=== PATIENT | male | born 1960 | race Caucasian/White ===

== ENCOUNTER 2020-05-21 08:21 | Day surgery (SDC) | payer OTHER ==
[2020-05-21 08:46] LABS: MPV 6.9 fL (7.6-11.3)
--- OUTSIDE RECORDS SUMMARY | 2020-05-21 08:47 | XMS REPORT | Continuity of Care Document ---
:1960 Author Organization [facility] t Address [address] [place] [address] Care Team Providers Name Role Phone SYSTEM, PROVIDER NOT IN Attending Clinician Unavailable Payers Payer Name Policy Type Policy Number Effective Date Expiration Date [facility] [id number] 2020 MD Barorso pablo [facility] 00:[facility]00 COMMUNITY MEDICAID STAR PLUS [id number]/[id number] 020-PresentMedica id Problems This patient has no known problems. Allergies, Adverse Reactions, Alerts This patient has no known allergies or adverse reactions. Social History Social Habit Start Date Stop Date Quantity Comments Source Sex Assigned At MD Villalobos Medications This patient has no known medications. Procedures This patient has no known procedures. Encounters Start End Encounter Admission Attending Care Care Encounter Source Date/Time Date/Time Type Type Clinicians Facility Department ID 2020-05-05 Outpatient SYSTEM, [facility] [id number] 16:22:21 PROVIDER Luis o n Results This patient has no known results.
[2020-05-21] MEDS ORDERED: Ringers Lactate 1,000 ML IV ONE (08:49)
[2020-05-21 08:51] LABS: Platelet Estimate ND
[2020-05-21 08:54] LABS: Protime INR 1.22
--- NOTE | 2020-05-21 10:03 | ECHO ---
HEIGHT: 6 ft 0 in WEIGHT: 168 lb 0 oz DATE OF STUDY: 05/20/[address]: Robi King 2-DIMENSIONAL: YES M.MODE: YES DOPPLER: YES COLOR FLOW: YES TDS: NO PORTABLE: NO DEFINITY: NO BUBBLE STUDY: NO DIAGNOSIS: LUNG CANCER CARDIAC HISTORY: CATHERIZATION: NO SURGERY: NO PROSTHETIC VALVE: NO PACEMAKER: NO MEASUREMENTS (cm) DIASTOLIC (NORMALS) SYSTOLIC (NORMALS) IVSd 0.9 (0.6-1.2) LA Diam 3.8 (1.9-4.0) LVEF 68% LVIDd 4.7 (3.5-5.7) LVIDs 2.9 (2.0-3.5) %FS 38% LVPWd 1.1 (0.6-1.2) Ao Diam 3.1 (2.0-3.7) 2 DIMENSIONAL ASSESSMENT: RIGHT ATRIUM: NORMAL LEFT ATRIUM: NORMAL RIGHT VENTRICLE: NORMAL LEFT VENTRICLE: NORMAL TRICUSPID VALVE: NORMAL MITRAL VALVE: PULMONIC VALVE: AORTIC VALVE: NORMAL PERICARDIAL EFFUSION: NONE AORTIC ROOT: NORMAL LEFT VENTRICULAR WALL MOTION: NORMAL DOPPLER/COLOR FLOW: NORMAL COMMENTS: NORMAL LEFT VENTRICULAR EJECTION FRACTION 55-60% WITH NORMAL WALL MOTION. MILD PULMONARY INSUFFICIENCY. NORMAL DIASTOLIC FUNCTION. TECHNOLOGIST: Mague OROSCO
[2020-05-21] MEDS ORDERED: MIDAZOLAM HCL 2 MG/2 ML INJ ONE (10:11)
[2020-05-21] MEDS ORDERED: FENTANYL CITR 100 MCG/2 ML ONE (10:11)
[2020-05-21 10:44] VITALS: O2SAT 100
[2020-05-21 10:45] VITALS: BMI 22.8
--- NOTE | 2020-05-21 11:56 | RAD REPORT ---
EXAM DESCRIPTION: RAD - Chest Single View - 05/21/2020 11:35 am CLINICAL HISTORY: Lung mass, post biopsy chest film COMPARISON: CT biopsy imaging May 21, two view chest April 09 TECHNIQUE: AP portable chest image was obtained 05/21/2020 11:35 perez expiration . FINDINGS: Patient is status post biopsy of the left lung mass. CT imaging showed a small anterior le ft base pneumothorax on the post biopsy acquisition. A small left apical pneumothorax is identifiable . When adjusting for the 2 different modalities, the size of the pneumothorax does not appear to have increased in the short interval between CT biopsy and the post biopsy chest film. IMPRESSION: Small left apical pneumothorax as detailed.
--- NOTE | 2020-05-21 14:14 | RAD REPORT ---
EXAM DESCRIPTION: RAD - Chest Single View - 05/21/2020 2:05 pm CLINICAL HISTORY: r/o pneumo post lung bx COMPARISON: Post biopsy chest film May 21 TECHNIQUE: AP portable chest image was obtained 05/21/2020 2:05 pmin expiration . FINDINGS: In the 3 hour interval since the immediate post biopsy film. No new or enlarging pulmonary hemorrhage. No change to the left midlung field mass. Heart and vasculature are normal. IMPRESSION: Stable minimal left apical pneumothorax.
[2020-05-21 14:38] VITALS: BP 118/70; TEMP 98.5
--- NOTE | 2020-05-21 20:39 | RAD REPORT ---
EXAM DESCRIPTION: CT - Lung Biopsy Perc w/CT - 05/21/2020 11:15 am CLINICAL HISTORY: LT LUNG MASS COMPARISON: No comparisons TECHNIQUE: The patient presented for image guided biopsy of the previously detailed large 7 cm left upper lobe mass. The prior day PET-CT was reviewed. The anterior and central aspect of the mass showe d no abnormal FDG uptake. This would indicate necrotic tissue that would not likely yield the desired diagnostic information. Therefore the anterior approach to the mass was not utilized. A lateral appr oach to the mass was determined to be the best approach for this patient. The procedure, risks and alternatives to the procedure were discussed with the patient in detail. Aft er answering all questions, both oral and written consent were obtained. Patient had no contraindicat ed allergy or medication history. PT/ PTT/ platelet values all within normal range for the procedure. IV access and physiologic monitors were in place. After the consent, the patient was medicated with 1 milligram Versed at IV and 100 micrograms fentanyl IV. The patient remained fully awake and alert. T he patient was administered an additional 1 milligram Versed at IV and 50 micrograms fentanyl IV. Preliminary CT imaging was performed with lateral access site selected. Skin and deeper tissues were anesthetized with 1% lidocaine. From a lateral approach using CT guidance a 17 gauge introducer needl e was advanced. Introducer needle was placed in the lateral posterior aspect of the mass. This was th e area of most metabolic activity on the PET-CT study. Two core specimens were obtained approximately 2 cm in length. The needle was withdrawn and direct pressure applied to the skin puncture site. A st erile bandage was placed. Post biopsy imaging showed no measurable hemorrhage in the lung parenchyma. The patient had an approx imately 5% pneumothorax at the anterior base. The patient tolerated procedure well without additional complication. Vital signs were stable through out the procedure. The patient indicated no pain at the conclusion of the procedure. Conscious sedati on time was 40 minutes. The patient was transferred to the imaging suite for immediate post biopsy chest film. The patient wa s then transferred to the same day surgical area for post biopsy monitoring. IMPRESSION: 1. CT-guided biopsy was performed of the large left lung mass. There were two core speci mens obtained and given to pathology. 2. A small anterior left base pneumothorax was present approximately 5%. The patient was transferred to the same day surgical area for post biopsy monitoring.
== END 2020-05-21 14:20 | disposition home or self-care (01) ==
LOC: DS 08:21
PROVIDERS: ATTEND Radiology Diagnostic Radiology
DX: C34.12 Malignant neoplasm of upper lobe, left bronchus or lung (principal); J93.83 Other pneumothorax
CPT/HCPCS: 93306; 36415; 85049; 85610; 88305; 85730; 77012; 32405; 71045 ×2; J2250; J3010; J7120

== ENCOUNTER 2020-06-23 07:47 | Emergency (ER) | payer OTHER ==
--- OUTSIDE RECORDS SUMMARY | 2020-06-23 07:56 | XMS REPORT | Continuity of Care Document ---
:1960 Author Organization [facility] t Address [address] [place] [address] Care Team Providers Name Role Phone SYSTEM, PROVIDER NOT IN Attending Clinician Unavailable Payers Payer Name Policy Type Policy Number Effective Date Expiration Date [facility] [id number] 2020 MD Dharmesh gold [facility] 00:00:00 COMMUNITY MEDICAID STAR PLUS [id number]/11/06 020-PresentMedica id Problems This patient has no known problems. Allergies, Adverse Reactions, Alerts Allergy Allergy Status Severity Reaction(s) Onset Inactive Treating Comm ents Source Name Type Date Date Clinician No Known DA Active [facility] Allergie 8-12 [facility] s 00:00: d 00 [facility] Social History Social Habit Start Date Stop Date Quantity Comments Source Sex Assigned At MD Villalobos Medications This patient has no known medications. Procedures This patient has no known procedures. Encounters Start End Encounter Admission Attending Care Care Encounter Source Date/Time Date/Time Type Type Clinicians Facility Department ID 2020-05-05 Outpatient SYSTEM, [facility] MARK [id number] 16:22:21 PROVIDER Luis o n Results Test Description Test Time Test Comments Results Result Sourc e Comments - XR FLUOROSCOPY 2020-06-18 Name: MAURO OLMEDO 0-60 MIN 09:29:00 [facility] Claude : 1960 Age/S: 60 / M [id number] Unit #: [id number] Loc: [place] [address] Phys: Sarah Sanford MD Acct: [id number] Dis Date: Status[place] [facility] [place]: [phone] Exam Date: 06/18/2020 0845 FAX #: Reason: PORT-A-CATH INSERTION EXAMS: CPT: [id number] XR FLUOROSCOPY 0-60 MIN 81362 Fluoro Time: 9 SEC DAP (Gy m2): Air Kerma (mGy): EXAM: - XR FLUOROSCOPY 0-60 MIN HISTORY: PORT-A-CATH INSERTION S 17 COMPARISON: None available time of interpretation. FINDINGS: Intraoperative fluoroscopy was provided for venous port placement. Radiologist was not present for the procedure. 4 fluoroscopy images were obtained. Please see surgical report. IMPRESSION: 1. As above. Fluoroscopy time: 9.4 seconds Cumulative dose: 0.9 mGy at 0929 Reported and signed by: Macarena Chapin M.D. CC: Roxie Soriano; Sarah Sanford MD PAGE 1 Signed Report Name: MAURO OLMEDO [facility] : 1960 Age/S: 60 / M [id number] Unit #: [id number] Loc: [place] [address] Phys: Sarah Sanford MD Acct: [id number] Dis Date: Status: [facility] [place] #: [phone] Exam Date: 06/18/2020 0845 FAX #: Reason: PORT-A-CATH INSERTION EXAMS: CPT: [id number] XR FLUOROSCOPY 0-60 MIN 76843 Fluoro Time: 9 SEC DAP (Gy m2): Air Kerma (mGy): <Continued> Technologist: Marlen Dumont RT(R) Trnscb Date/Time: 06/18/2020 (928) [id number] Orig Print D/T: S: 06/18/2020 (32) PAGE 2 Signed Report - XR CHEST 1 V 2020-06-18 Name: MAURO OLMEDO 09:25:00 [facility] : 1960 Age/S: 60 / M [id number] Unit #: [id number] Loc: [place] [address] Phys: Sarah Sanford MD Acct: [id number] Dis Date: Status: [place] [facility] [place] #: [phone] Exam Date: 06/18/2020909 FAX #: Reason: s/p port a cath insertion EXAMS: CPT: [id number] XR CHEST 1 V 00752 Fluoro Time: DAP (Gy m2): Air Kerma (mGy): REASON FOR EXAM: Port-A-Cath insertion. Chest, single view frontal projection. COMPARISON: None The right-sided Port-A-Cath has is tip in the superior vena cava at the level just beneath the right mainstem bronchus. Central left lung mass seen. Right lung clear. Heart size normal. No effusion or pneumothorax seen. Bony structures intact. Noted is scoliosis in the spine. IMPRESSION: Good position for the Port-A-Cath. No evidence of pneumothorax. Left lung mass. Location: U 19 at 0925 Reported and signed by: Brendon Park M.D CC: Roxie Soriano; Sarah Sanford MD PAGE 1 Signed Report Name: MAURO OLMEDO [place] : 1960 Age/S: 60 / M [id number] Unit #: [id number] Loc: [place] [address] Phys: Sarah Sanford MD Acct: [id number] Dis Date: Status: [place] [facility] [place] #: [phone] Exam Date: 06/18/2020909 FAX #: Reason: s/p port a cath insertion EXAMS: CPT: [id number] XR CHEST 1 V 16909 Fluoro Time: DAP (Gy m2): Air Kerma (mGy): <Continued> Technologist: Keesha Prasad, RT(R)(CT); Marlen Dumont RT(R) Trnscb Date/Time: 06/18/2020 (924) [email or web address] Orig Print D/T: S: 06/18/2020 (927) PAGE 2 Signed Report COVID 19 INHOUSE AG 2020-06-16 09:57:00 Test Item Value Reference Range Interpretation Comme nts COVID 19 INHOUSE AG (test code = NEGATIVE Negative Per demurrage agent, negative [id number]) results should be treated aspresumptive a nd, if inconsistent wi th clinical signs andsymptoms or necessary for patient managem ent, should betested with a n alternative molecular assay . Negative resultsdo not p reclude SARS-CoV-2 infection and s hould not be usedas the sole basis for patient management deci sions. Negative results should be considered in the context of apatient's recent exposures, hist ory, presence of clinicalsigns a nd symptoms consistent with COVID-19. Emergent procedure? YES
[2020-06-23] MEDS ORDERED: NA CHLORIDE 0.9% 3,000 ML ONE (08:12)
[2020-06-23 08:31] LABS: Absolute Lymphocytes (CBC) 1.4 K/uL (0.7-4.9); Basophils % 0.4 % (0-1.3); Hematocrit 40.3 % (39.6-49.0); Lymphocytes % 19.1 % (15.3-44.8); MPV 7.1 fL (7.6-11.3); RBC Red Blood Cell Count 5.16 M/uL (4.33-5.43)
[2020-06-23] MEDS ORDERED: ACETAMINOPHEN 500 MG TAB ONE (08:31)
[2020-06-23] MEDS ORDERED: CEFTRIAXONE/SWI 1gm 1 GM/10 ML SYR ONE (08:32)
[2020-06-23 08:40] LABS: Protime INR 1.13
[2020-06-23 08:46] LABS: ALT/SGPT 27 U/L (12-78); AST/SGOT 38 U/L (15-37); Alkaline Phosphatase 118 U/L (45-117); Amylase 80 U/L (25-115); BUN Blood Urea Nitrogen 14 mg/dL (7-18); Bicarbonate 24 mmol/L (21-32); Bilirubin Direct 0.4 mg/dL (0-0.2); Bilirubin Total 0.9 mg/dL (0.2-1.0); CKMB Creatine Kinase MB < 1.0 ng/mL (0.3-3.6); Creatine Phosphokinase 62 U/L (39-308); Glucose Level 105 mg/dL (74-106); Lipase 244 U/L (73-393); Protein, Total 6.9 g/dL (6.4-8.2); Sodium Level 135 mmol/L (136-145); Troponin (Emerg Dept Use Only) 0.03 ng/mL (0.0-0.045)
--- NOTE | 2020-06-23 08:56 | RAD REPORT ---
EXAM DESCRIPTION: CT - Head Brain Wo Cont - 06/23/2020 8:43 am CLINICAL HISTORY: AMS;Fever COMPARISON: Brain W/Wo Cont dated 05/18/2020 TECHNIQUE: Axial 5 mm thick images of the head were obtained without IV contrast. All CT scans are performed using dose optimization technique as appropriate and may include automated exposure control or mA/KV adjustment according to patient size. FINDINGS: No intracranial hemorrhage is present. Prior imaging showed multiple intracranial metastat ic lesions. In the left frontal lobe there is white matter diminished attenuation matching the May RI study. No increase in mass effect or edema in this region. At the left lateral parieto-occipital j unction there is focal diminished attenuation generally matching the MRI study. There is no significa nt mass effect in this region. No acute cortical based infarction identified. No new cortical edema o r sulcal effacement. Additional small punctate metastatic lesions could still be possible. If present there is no new or enlarging mass effect. No edema or shift of midline structures present. No abnorm al extra-axial fluid collections. Ventricles are normal. Mastoid air cells and visualized portions of the paranasal sinuses are clear. No acute bony findings. IMPRESSION: No intracranial hemorrhage is present. Patient has known intracranial metastatic disease. The cortical and white matter edema related to the metastatic lesions is not clearly different or measurably progressive from the May 18 MRI study. No midline shift. Ventricles are normal.
--- NOTE | 2020-06-23 09:28 | RAD REPORT ---
EXAM DESCRIPTION: RAD - Chest Single View - 06/23/2020 9:09 am CLINICAL HISTORY: CHEST PAIN, known left lung malignancy COMPARISON: Portable chest May 21 TECHNIQUE: AP portable chest image was obtained 06/23/2020 9:09 am . FINDINGS: Large left midlung field mass is identified. Size is not clearly different from the May 05 imaging. Right-sided Port-A-Cath has been placed since the prior study. Interstitial pattern overal l is not substantially different. No new mass or consolidation. No failure or volume overload. Heart and vasculature are normal. No measurable pleural effusion and no pneumothorax. No acute bony abnormality seen. No acute aortic findings suspected. IMPRESSION: No acute cardiopulmonary process. Patient has known left midlung field malignancy is not clearly different.
[2020-06-23 10:30] LABS: Anisocytosis 2+; Blood Morphology Comment NOTED (NOT SEEN); Platelet Estimate ADEQ
[2020-06-23 11:10] LABS: Urine Bacteria <20 /HPF (NONE SEEN); Urine Culture Reflex Order NOT NEEDED; Urine Sperm PRESENT (NONE SEEN)
--- NOTE | 2020-06-23 12:19 | ER ---
Nurse's Notes [facility] Name: Tylor Delgadillo Age: 60 yrs Sex: Male : 1960 Arrival Date: 06/23/2020 Time: 07:50 Bed 7 Private MD: Diagnosis: Confusion, chest pain, expressive aphasia - resolved Presentation: 06/23 08:04 Chief complaint: Patient states: midsternal chest pains off and on , wakes him up in iw middle of night every 40 minutes, also running fever, urinary frequency and pain, started Sunday, is currently on chemo for brain cancer also is having some confusion and can't sleep at night. Coronavirus screen: fever, Client presents with at least one sign or symptom that may indicate coronavirus-19. Ebola Screen: Patient negative for fever greater than or equal to 101.5 degrees Fahrenheit, and additional compatible Ebola Virus Disease symptoms Patient denies exposure to infectious person. Patient denies travel to an Ebola-affected area in the 21 days before illness onset. No symptoms or risks identified at this time. Initial Sepsis Screen: Does the patient meet any 2 criteria? Temp <36.0*C (96.8*F)) or > 38.3*C (100.9*F). HR > 90 bpm. Does the patient have a suspected source of infection? Yes: Dysuria/Frequency/Urgency/UTI. Risk Assessment: Do you want to hurt yourself or someone else? Patient reports no desire to harm self or others. Onset of symptoms was June 21, 2020. 08:04 Method Of Arrival: Wheelchair iw 08:04 Acuity: RODRIGO 2 iw Historical: - Allergies: 08:07 No Known Allergies; iw - PMHx: 08:14 Cancer; iw - Immunization history:: Adult Immunizations up to date, Adult Immunizations not up to date. - Social history:: Smoking status: Patient reports the use of cigarette tobacco products, smokes one pack cigarettes per day. Screenin:09 Abuse screen: Denies threats or abuse. Denies injuries from another. Nutritional sv screening: No deficits noted. Tuberculosis screening: No symptoms or risk factors identified. Fall Risk None identified. Assessment: 08:05 General: Appears in no apparent distress. uncomfortable, slender, Behavior is calm, sv cooperative, appropriate for age, Reports fever. Pain: Complains of pain in chest Pain does not radiate. Pain currently is 5 out of 10 on a pain scale. Pain began gradually. Neuro: Level of Consciousness is awake, alert, obeys commands, Oriented to person, place, time, situation, Moves all extremities. Full function Gait is steady, Speech is normal, has some difficulty speaking. Reports headache. Cardiovascular: Patient's skin is warm and dry. Rhythm is sinus rhythm. Respiratory: Respiratory effort is even, unlabored, Respiratory pattern is regular, symmetrical. Derm: Skin is normal. Musculoskeletal: Range of motion: intact in all extremities. 08:05 : Reports burning with urination. sv 09:00 Reassessment: Patient appears in no apparent distress at this time. Patient and/or hb family updated on plan of care and expected duration. Pain level reassessed. Patient is alert, oriented x 3, equal unlabored respirations, skin warm/dry/pink. 10:30 Reassessment: Patient appears in no apparent distress at this time. Patient and/or sv family updated on plan of care and expected duration. Pain level reassessed. Patient is alert, oriented x 3, equal unlabored respirations, skin warm/dry/pink. 12:20 Reassessment: Patient appears in no apparent distress at this time. Patient and/or sv family updated on plan of care and expected duration. Pain level reassessed. Patient is alert, oriented x 3, equal unlabored respirations, skin warm/dry/pink. Pt refusing the MRI. Vital Signs: 08:00 BP 108 / 72; Pulse 115; Resp 18 S; Temp 101.3(O); Pulse Ox 98% on R/A; Weight 81.65 kg; iw 08:33 BP 120 / 72; Pulse 97; Resp 21; Pulse Ox 95% on R/A; sv 09:14 BP 100 / 64; Pulse 92; Resp 17; Temp 99.3(O); Pulse Ox 95% ; sv 09:45 BP 93 / 66; Pulse 86; Resp 20; Pulse Ox 95% on R/A; sv 10:32 BP 94 / 62; Pulse 83; Resp 18; Pulse Ox 96% on R/A; sv 11:35 BP 94 / 65; Pulse 80; Resp 14; Pulse Ox 97% ; sv ED Course: 07:50 Patient arrived in ED. ds1 07:58 Rittger, Ozzie, MD is Attending Physician. kdr 07:59 Heather Benites, GEO is Primary Nurse. sv 08:07 Triage completed. iw 08:07 Initial lab(s) drawn, by me, sent to lab. First set of blood cultures drawn by me. dh3 Inserted saline lock: 20 gauge in right forearm, using aseptic technique. Blood collected. 08:09 ED physician to see patient. sv 08:09 EKG done, by ED staff, reviewed by Ozzie Rodriguez MD. Patient maintains SpO2 saturation sv greater than 95% on room air. 08:09 Second set of blood cultures drawn by me. dh3 08:09 Patient has correct armband on for positive identification. Placed in gown. Bed in low sv position. Call light in reach. Side rails up X2. spike machine feeder on. Pulse ox on. NIBP on. Door closed. Head of bed elevated. 08:10 Arm band placed on. sv 08:[address] Scan. sv 08:42 CT Head Brain wo Cont In Process Unspecified. EDMS 09:10 Chest Single View XRAY In Process Unspecified. EDMS 12:14 Patient moved to MRI via wheelchair. sv 12:52 No provider procedures requiring assistance completed. IV discontinued, intact, IV sv found on the stretcher intact. Administered Medications: 08:06 Drug: NS 0.9% (30 ml/kg) 30 ml/kg Route: IV; Rate: bolus; Site: right forearm; hb 09:30 Follow up: Response: No adverse reaction; IV Status: Completed infusion; IV Intake: sv 2400ml 08:25 Drug: Tylenol 1000 mg Route: PO; hb 09:16 Follow up: Response: No adverse reaction sv 08:25 Drug: Rocephin - (cefTRIAXone) 1 grams Route: IVPB; Infused Over: 30 mins; Site: right hb antecubital; 08:27 Follow up: Response: No adverse reaction; IV Status: Completed infusion; IV Intake: 10mlsv Intake: 08:27 IV: 10ml; Total: 10ml. sv 09:30 IV: 2400ml; Total: 2410ml. sv Outcome: 12:19 Discharge ordered by . kdr 12:52 Patient left the ED. sv 12:52 Discharged to home ambulatory, pt left before signing the discharge paperwork. sv 12:52 Condition: stable Signatures: Dispatcher [employer] Heather Rosario RN RN Ozzie Rodriguez MD MD [facility] Kathi Hernandez ds1 Priya Sultana RN RN Mariela Parish RN RN Kelin Echavarria 3 Corrections: (The following items were deleted from the chart) 08:08 08:00 81.65 kg; hb iw 08:11 08:04 Chief complaint: Patient states: midsternal chest pains off and on , wakes him up iw in middle of night every 40 minutes, also running fever, urinary frequency and pain, started Sunday, is currently on chem for "blood cancer" also is having some confusion and can't sleep at night iw 08:36 08:05 General: Appears in no apparent distress. uncomfortable, slender, Behavior is sv calm, cooperative, appropriate for age, sv 09:16 09:14 BP 100 / 64; Pulse 92bpm; Resp 17bpm; Pulse Ox 95%; sv sv 10:35 10:32 Pulse 83bpm; Resp 18bpm; Pulse Ox 96% RA; sv sv 16:33 12:52 Reassessment: Patient appears in no apparent distress at this time. Patient sv and/or family updated on plan of care and expected duration. Pain level reassessed. Patient is alert, oriented x 3, equal unlabored respirations, skin warm/dry/pink. Pt refusing the MRI sv
--- NOTE | 2020-06-23 12:19 | EDPHYS ---
Physician Documentation [facility] Name: Tylor Delgadillo Age: 60 yrs Sex: Male : 1960 Arrival Date: 06/23/2020 Time: 07:50 Bed 7 Private MD: ED Physician Ozzei Rodriguez HPI: 06/23 08:38 This 60 yrs old Male presents to ER via Wheelchair with complaints of Chest kdr Pain, Speech Difficulty. 08:38 The patient or guardian reports chest pain that is located primarily in the substernal kdr area, anterior chest wall, bilaterally. Onset: gradually, Sunday the patient started feeling poorly. 16:53 The patient presents with confusion, decreased mental status, expressive aphasia. kdr Onset: The symptoms/episode began/occurred this morning. Possible causes: CVA or TIA, low blood sugar, seizure, sepsis. Associated signs and symptoms: Pertinent positives: chest pain, Poor sleep. Current symptoms: In the emergency department the patient's symptoms are unchanged from the initial presentation. Patient's baseline: Neuro: alert and fully oriented, Motor: no deficits, Ambulation: walks without assistance, Speech: normal, normal for age, The patient has a previous history of Lung CA with mets to the brain - is on chemo. The patient has not experienced similar symptoms in the past. The patient has not recently seen a physician. Historical: - Allergies: 08:07 No Known Allergies; iw - PMHx: 08:14 Cancer; iw - Immunization history:: Adult Immunizations up to date, Adult Immunizations not up to date. - Social history:: Smoking status: Patient reports the use of cigarette tobacco products, smokes one pack cigarettes per day. ROS: 16:53 Constitutional: Negative for fever, chills, and weight loss, Eyes: Negative for injury, kdr pain, redness, and discharge, Neck: Negative for injury, pain, and swelling, Respiratory: Negative for shortness of breath, cough, wheezing, and pleuritic chest pain, Abdomen/GI: Negative for abdominal pain, nausea, vomiting, diarrhea, and constipation, Back: Negative for injury and pain, : Negative for injury, bleeding, discharge, and swelling, MS/Extremity: Negative for injury and deformity, Skin: Negative for injury, rash, and discoloration, Psych: Negative for depression, anxiety, suicide ideation, homicidal ideation, and hallucinations, Allergy/Immunology: Negative for hives, rash, and allergies, Endocrine: Negative for neck swelling, polydipsia, polyuria, polyphagia, and marked weight changes, Hematologic/Lymphatic: Negative for swollen nodes, abnormal bleeding, and unusual bruising. 16:53 Cardiovascular: Positive for chest pain, has been ongoing for weeks and may have started when he began chemo. 16:53 Neuro: Positive for altered mental status, speech changes. Exam: 16:53 Constitutional: This is a well developed, well nourished patient who is awake, alert, kdr and in no acute distress. Head/Face: Normocephalic, atraumatic. Eyes: Pupils equal round and reactive to light, extra-ocular motions intact. Lids and lashes normal. Conjunctiva and sclera are non-icteric and not injected. Cornea within normal limits. Periorbital areas with no swelling, redness, or edema. Neck: Trachea midline, no thyromegaly or masses palpated, and no cervical lymphadenopathy. Supple, full range of motion without nuchal rigidity, or vertebral point tenderness. No Meningismus. Chest/axilla: Normal chest wall appearance and motion. Nontender with no deformity. No lesions are appreciated. Cardiovascular: Regular rate and rhythm with a normal S1 and S2. No gallops, murmurs, or rubs. Normal PMI, no JVD. No pulse deficits. Respiratory: Lungs have equal breath sounds bilaterally, clear to auscultation and percussion. No rales, rhonchi or wheezes noted. No increased work of breathing, no retractions or nasal flaring. Abdomen/GI: Soft, non-tender, with normal bowel sounds. No distension or tympany. No guarding or rebound. No evidence of tenderness throughout. Back: No spinal tenderness. No costovertebral tenderness. Full range of motion. Skin: Warm, dry with normal turgor. Normal color with no rashes, no lesions, and no evidence of cellulitis. MS/ Extremity: Pulses equal, no cyanosis. Neurovascular intact. Full, normal range of motion. Psych: Awake, alert, with orientation to person, place and time. Behavior, mood, and affect are within normal limits. 16:53 Neuro: Orientation: Not oriented to person, place, time, Mentation: inappropriate for stated age, slow to respond, confused, Memory: unable to test, Cranial nerves: no acute changes, Cerebellar function: no acute changes, Motor: moves all fours. 19:36 ECG was reviewed by the Attending Physician. kdr Vital Signs: 08:00 BP 108 / 72; Pulse 115; Resp 18 S; Temp 101.3(O); Pulse Ox 98% on R/A; Weight 81.65 kg; iw 08:33 BP 120 / 72; Pulse 97; Resp 21; Pulse Ox 95% on R/A; sv 09:14 BP 100 / 64; Pulse 92; Resp 17; Temp 99.3(O); Pulse Ox 95% ; sv 09:45 BP 93 / 66; Pulse 86; Resp 20; Pulse Ox 95% on R/A; sv 10:32 BP 94 / 62; Pulse 83; Resp 18; Pulse Ox 96% on R/A; sv 11:35 BP 94 / 65; Pulse 80; Resp 14; Pulse Ox 97% ; sv MDM: 12:19 Patient medically screened. kdr 12:21 ED course: The patient refused MRI. He appears to be back to his baseline and was kdr wanting to leave. His VS were otherwise stable and the patient was able to related that his Oncologist had warned him that side effects from his treatment might included mental status changes as had been exhibited on arrival. The patient was happy with the care provided and the plan for discharge and follow-up. 16:53 Data reviewed: vital signs, nurses notes, lab test result(s), radiologic studies. kdr Counseling: I had a detailed discussion with the patient and/or guardian regarding: the historical points, exam findings, and any diagnostic results supporting the discharge/admit diagnosis, lab results, radiology results. 06/23 07:59 Order name: Amylase, Serum; Complete Time: 09:24 kdr 06/23 07:59 Order name: Basic Metabolic Panel; Complete Time: 09:24 kdr 06/23 07:59 Order name: Blood Culture Adult (2) kdr 06/23 07:59 Order name: CBC with Diff kdr 06/23 07:59 Order name: Ckmb; Complete Time: 09:24 kdr 06/23 07:59 Order name: CPK; Complete Time: 09:24 kdr 06/23 07:59 Order name: Lactate; Complete Time: 09:24 [facility] 06/23 07:59 Order name: LFT's; Complete Time: 09:24 kdr 06/23 07:59 Order name: Lipase; Complete Time: 09:24 kdr 06/23 07:59 Order name: Procalcitonin; Complete Time: 09:24 kdr 06/23 07:59 Order name: Protime (+inr); Complete Time: 09:24 kdr 06/23 07:59 Order name: Ptt, Activated; Complete Time: 09:24 kdr 06/23 07:59 Order name: Troponin (emerg Dept Use Only); Complete Time: 09:24 kdr 06/23 07:59 Order name: Urine Microscopic Only kdr 06/23 07:59 Order name: Chest Single View XRAY kdr 06/23 07:59 Order name: Cardiac monitoring; Complete Time: 08:10 kdr 06/23 07:59 Order name: EKG - Nurse/Tech; Complete Time: 08:10 kdr 06/23 07:59 Order name: IV Saline Lock - Large Bore; Complete Time: 08:10 kdr 06/23 07:59 Order name: Labs collected and sent; Complete Time: 08:11 kdr 06/23 07:59 Order name: O2 Per Protocol; Complete Time: 08:11 kdr 06/23 07:59 Order name: O2 Sat Monitoring; Complete Time: 08:11 kdr 06/23 07:59 Order name: Urine Dipstick-Ancillary (obtain specimen); Complete Time: 10:35 kdr 06/23 08:13 Order name: CT Head Brain wo Cont; Complete Time: 09:24 kdr 06/23 10:16 Order name: Urine Dipstick--Ancillary (enter results) bd 06/23 10:30 Order name: Manual Differential EDMS EC:36 Rate is 113 beats/min. Rhythm is regular, Sinus tachycardia with No ectopy. QRS [place] is kdr Normal. CA interval is normal. QRS interval is normal. QT interval is normal. Clinical impression: NSR w/ Non-specific ST/T Changes and Sinus tachycardia. Administered Medications: 08:06 Drug: NS 0.9% (30 ml/kg) 30 ml/kg Route: IV; Rate: bolus; Site: right forearm; hb 09:30 Follow up: Response: No adverse reaction; IV Status: Completed infusion; IV Intake: sv 2400ml 08:25 Drug: Tylenol 1000 mg Route: PO; hb 09:16 Follow up: Response: No adverse reaction sv 08:25 Drug: Rocephin - (cefTRIAXone) 1 grams Route: IVPB; Infused Over: 30 mins; Site: right hb antecubital; 08:27 Follow up: Response: No adverse reaction; IV Status: Completed infusion; IV Intake: 10mlsv Disposition: 06/23/20 12:19 Discharged to Home. Impression: Confusion, chest pain, expressive aphasia - resolved. - Condition is Stable. - Discharge Instructions: Confusion, Aphasia, Nonspecific Chest Pain, Rwcd-zl-Oixy, Pleurisy, Lzes-no-Fayo. - Medication Reconciliation Form, Thank You Letter form. - Follow up: Private Physician; When: 2 - 3 days; Reason: If symptoms return, Further diagnostic work-up, Recheck today's complaints, Continuance of care, Re-evaluation by your physician. - Problem is new. - Symptoms have improved. Signatures: Dispatcher [employer] EDHeather Salazar RN RN Ozzie Rodriguez MD MD [facility] Priya Sultana RN RN Mariela Parish RN RN Corrections: (The following items were deleted from the chart) 09:40 07:59 Accucheck ordered. kdr sv 12:52 12:19 06/23/2020 12:19 Discharged to Home. Impression: Confusion, chest pain, sv expressive aphasia - resolved. Condition is Stable. Forms are Medication Reconciliation Form, Thank You Letter, Antibiotic Education, Prescription Opioid Use. Follow up: Private Physician; When: 2 - 3 days; Reason: If symptoms return, Further diagnostic work-up, Recheck today's complaints, Continuance of care, Re-evaluation by your physician. Problem is new. Symptoms have improved. kdr
[2020-06-23 13:02] VITALS: TEMP 99.3
[2020-06-23 13:05] VITALS: BP 94/65; O2SAT 97
[2020-06-23 13:10] LABS: Urine Blood 1+ (NEG); Urine Glucose NEGATIVE (NEG); Urine Protein 1+ (NEG)
--- NOTE | 2020-06-24 08:44 | EKG ---
Test Date: 2020-06-23 Test Time: 08:07:14 Quality Control Associate: BELKYS MEASUREMENT RESULTS: Intervals: Rate: 113 CO: 118 QRSD: 68 QT: 290 QTc: 397 [place]: P: 66 CO: 118 QRS: 79 T: 48 INTERPRETIVE STATEMENTS: Sinus tachycardia Otherwise normal ECG No previous ECG available for comparison Electronically Signed On 06-24-20 08:38:42 CDT by Cheo Cuellar
== END 2020-06-23 12:52 | disposition home or self-care (01) ==
LOC: ER 07:47
DX: R41.0 Disorientation, unspecified (principal); C34.90 Malignant neoplasm of unspecified part of unspecified bronchus or lung; C71.9 Malignant neoplasm of brain, unspecified; F17.210 Nicotine dependence, cigarettes, uncomplicated
CPT/HCPCS: 96365; 93005; 87040 ×2; 85025; 80048; 36415; 82150; 82550; 85610; 80076; 83605; 85730; 84484; 82553; 83690; 84145; 70450; 71045; 96375; 99285; J0696; J7030; 81003; 81015

== ENCOUNTER 2020-07-17 19:33 | Emergency (ER) | payer OTHER ==
--- OUTSIDE RECORDS SUMMARY | 2020-07-17 19:36 | XMS REPORT | Continuity of Care Document ---
:1960 Author Organization [facility] t Address [address] [place] [address] Care Team Providers Name Role Phone SYSTEM, PROVIDER NOT IN Attending Clinician Unavailable Payers Payer Name Policy Type Policy Number Effective Date Expiration Date [facility] [id number] 2020 MD Barroso pablo [facility] 00:00:00 [employer] MEDICA[employer] ST[employer] PLUS [id number]/[id number] 020-PresentMedica id Problems This patient has no known problems. Allergies, Adverse Reactions, Alerts Allergy Allergy Status Severity Reaction(s) Onset Inactive Treating Comm ents Source Name Type Date Date Clinician No Known DA Active U [facility] All[facility]ie 12 [place] s 00:00: d 00 [facility] Social History Social Habit Start Date Stop Date Quantity Comments Source Sex Assigned At MD Villalobos Medications This patient has no known medications. Procedures This patient has no known procedures. Encounters Start End Encounter Admission Attending Care Care Encounter Source Date/Time Date/Time Type Type Clinicians Facility Department ID 2020-05-05 Outpatient SYSTEM, [facility] MARK [id number] 16:22:21 PROVIDER Luis o n Results Test Description Test Time Test Comments Results Result Sourc e Comments - XR FLUOROSCOPY 2020-06-18 Name: MAURO OLMEDO 0-60 MIN 09:29:00 [facility] [place] : 1960 Age/S: 60 / M [address] [place] Unit #: [id number] Loc: [place] [address] Phys: Sarah Sanford MD Acct: [id number] Dis Date: Status: REG [facility] PHONE #: [phone] Exam Date: 06/18/2020 0845 FAX #: Reason: PORT-A-CATH INSERTION EXAMS: CPT: [id number] XR FLUOROSCOPY 0-60 MIN 42820 Fluoro Time: 9 SEC DAP (Gy m2): [...] Signed Report Name: MAURO OLMEDO [facility] : 1960 Age/S: 60 / M [address] Unit #: [id number] Loc: [place] [address] Phys: Sarah Sanford MD Acct: [id number] Dis Date: Status: REG [facility] PHONE #: [phone] Exam Date: 06/18/2020 0845 FAX #: Reason: PORT-A-CATH INSERTION EXAMS: CPT: [id number] XR FLUOROSCOPY 0-60 MIN 65226 Fluoro Time: 9 SEC DAP (Gy m2): Air Kerma (mGy): <Continued> Technologist: Marlen Dumont, RT(R) Trnscb Date/Time: 06/18/2020 (928) [email or web address] Orig Print D/T: S: 06/18/2020 (931) PAGE 2 Signed Report - XR CHEST 1 V 2020-06-18 Name: MAURO OLMEDO 09:25:00 [facility] : 1960 Age/S: 60 / M [address] Unit #: [id number] Loc: [place] [address] Phys: Sarah Sanford MD Acct: [id number] Dis Date: Status: REG [facility] PHONE #: [phone] Exam Date: 06/18/2020909 FAX #: Reason: s/p port a cath insertion EXAMS: CPT: [id number] XR CHEST 1 V 52999 Fluoro Time: DAP (Gy m2): Air Kerma [...] MD PAGE 1 Signed Report Name: MAURO [place]MED[place]land : 1960 Age/S: 60 / M [address] Unit #: [id number] Loc: [place] [address] Phys: Sarah Sanford MD Acct: [id number] Dis Date: Status: REG [facility] PHONE #: [phone] Exam Date: 06/18/2020909 FAX #: Reason: s/p port a cath insertion EXAMS: CPT: [id number] XR CHEST 1 V 77402 Fluoro Time: DAP (Gy m2): Air Kerma (mGy): <Continued> Technologist: Keesha Prasad, RT(R)(CT); Marlen Dumont RT(R) Trnscb Date/Time: 06/18/2020 (924) [email or web address] Orig Print D/T: S: 06/18/2020 (927) PAGE 2 Signed Report COVID 19 INHOUSE AG 2020-06-16 09:57:00 Test Item Value Reference Range Interpretation Comme nts COVID 19 INHOUSE AG (test code = NEGATIVE Negative Per mathematical engineering technician, negative [id number]) results should be treated aspresumptive a nd, [...]
[2020-07-17] MEDS ORDERED: NA CHLORIDE 0.9% 1,000 ML ONE (21:07)
[2020-07-17 21:23] LABS: Magnesium 2.1 mg/dL (1.8-2.4); Potassium 4.2 mmol/L (3.5-5.1)
--- NOTE | 2020-07-17 21:37 | EDPHYS ---
Physician Documentation [facility] Name: Tylor Delgadillo Age: 60 yrs Sex: Male : 1960 Arrival Date: 07/17/2020 Time: 19:36 Bed 13 Private MD: ED Physician Rohit Love HPI: 07/17 20:43 This 60 yrs old Male presents to ER via Ambulatory with complaints of Cramp rn in Arms and Hands. 20:43 Reports muscle cramps in all extremities, for weeks, just recently started treatment rn for lung cancer, but these symptoms have happened on and off even before diagnosis. Reports used to go away on its own, now feels like cramps and spasms lasting longer and longer the last few weeks. No fever. NO injury. NO other change in medication. Reports appetite ok. . Severity of symptoms: At their worst the symptoms were moderate in the emergency department the symptoms are unchanged. The patient has experienced similar episodes in the past. The patient has not recently seen a physician. 20:43 The patient has been recently seen by a physician:. rn Historical: - Allergies: 19:54 No Known Allergies; ll1 - PMHx: 19:54 lung CA; ll1 - PSHx: 19:54 brain radiation; ll1 - Immunization history:: Flu vaccine is not up to date. - Social history:: Smoking status: Patient/guardian denies using tobacco, Stopped _ months ago .2 Patient/guardian denies using alcohol, street drugs. - Family history:: not pertinent. - Hospitalizations: : No recent hospitalization is reported. ROS: 20:43 Constitutional: Negative for fever, chills Eyes: Negative for injury, pain, redness, rn and discharge, Cardiovascular: Negative for chest pain, palpitations, and edema, Respiratory: Negative for shortness of breath, cough, wheezing, and pleuritic chest pain, Abdomen/GI: Negative for abdominal pain, nausea, vomiting, diarrhea, and constipation, MS/Extremity: Negative for injury and deformity, Skin: Negative for injury, rash, and discoloration, Neuro: Negative for headache, weakness, numbness, tingling, and seizure. Exam: 20:43 Constitutional: Thin male, no acute distress. Cardiovascular: Regular rate and rn rhythm. No pulse deficits. Respiratory: No increased work of breathing, no retractions or nasal flaring. Skin: Warm, dry MS/ Extremity: Pulses equal, no cyanosis. Neurovascular intact. Full, normal range of motion. Equal circumference. Neuro: Awake and alert, GCS 15, oriented to person, place, time, and situation. Cranial nerves II-XII grossly intact. Motor strength 5/5 in all extremities. Sensory grossly intact. Cerebellar exam normal. Vital Signs: 19:51 BP 134 / 92; Pulse 96; Resp 18; Temp 97.3; Pulse Ox 98% ; Pain 8/10; ll1 20:30 BP 112 / 79; Pulse 91; Resp 18; Pulse Ox 99% on R/A; wh 21:47 BP 122 / 72; Pulse 80; Resp 18; Pulse Ox 100% on R/A; wh MDM: 20:31 Patient medically screened. rn 21:35 Differential Diagnosis muscle cramps and spasms, hypocalcemia, hypokalemia. Data rn reviewed: vital signs, nurses notes, lab test result(s), and as a result, I will discharge patient. Counseling: I had a detailed discussion with the patient and/or guardian regarding: the historical points, exam findings, and any diagnostic results supporting the discharge/admit diagnosis, lab results, the need for outpatient follow up, to return to the emergency department if symptoms worsen or persist or if there are any questions or concerns that arise at home. Response to treatment: the patient's symptoms have mildly improved after treatment. Special discussion: I discussed with the patient/guardian in detail that at this point there is no indication for admission to the hospital. It is understood, however, that if the symptoms persist or worsen the patient needs to return immediately for re-evaluation. 07/17 20: Order name: Basic Metabolic Panel; Complete Time: : rn 07/17 20: Order name: Magnesium; Complete Time: 21:29 rn 07/17 20: Order name: IV Start; Complete Time: :53 rn Administered Medications: : Drug: NS 0.9% 1000 ml Route: IV; Rate: 1000 ml; Site: left antecubital; 21:47 Follow up: Response: No adverse reaction; IV Status: Completed infusion 22:10 Drug: Calcium Carbonate 500 mg 2 tablet Route: PO; 22:14 Follow up: Response: No adverse reaction Disposition: 07/17/20 21:36 Discharged to Home. Impression: Cramp and spasm, Hypocalcemia. - Condition is Stable. - Discharge Instructions: Muscle Cramps and Spasms, Hypocalcemia, Adult. - Medication Reconciliation Form, Thank You Letter, Antibiotic Education, Prescription Opioid Use form. - Follow up: Private Physician; When: As needed; Reason: Recheck today's complaints, Re-evaluation by your physician. - Problem is an ongoing problem. - Symptoms have improved. Signatures: Dispatcher [employer] EDMT Rohit Love MD MD rn [place], Eleazar Kenney RN RN ll1 Corrections: (The following items were deleted from the chart) 20:44 20:43 The patient has experienced similar episodes in the past, rn rn 22:15 21:36 07/17/2020 21:36 Discharged to Home. Impression: Cramp and spasm; Hypocalcemia. wh Condition is Stable. Forms are Medication Reconciliation Form, Thank You Letter, Antibiotic Education, Prescription Opioid Use. Follow up: Private Physician; When: As needed; Reason: Recheck today's complaints, Re-evaluation by your physician. Problem is an ongoing problem. Symptoms have improved. rn
--- NOTE | 2020-07-17 21:37 | ER ---
Nurse's Notes [facility] Name: Tylor Delgadillo Age: 60 yrs Sex: Male : 1960 Arrival Date: 07/17/2020 Time: 19:36 Bed 13 Private MD: Diagnosis: Cramp and spasm;Hypocalcemia Presentation: 07/17 19:51 Chief complaint: Patient states: Cramping to both forearms and hands for 1-2 weeks. ll1 Cramping to lower legs also. [facility] for lung CA. Coronavirus screen: Client denies travel out of the [place] in the last 14 days. At this time, the client does not indicate any symptoms associated with coronavirus-19. Ebola Screen: Patient denies travel to an Ebola-affected area in the 21 days before illness onset. Initial Sepsis Screen: Does the patient meet any 2 criteria? HR > 90 bpm. Risk Assessment: Do you want to hurt yourself or someone else? Patient reports no desire to harm self or others. Onset of symptoms was August 04, 2020. 19:51 Method Of Arrival: Ambulatory 1 19:51 Acuity: RODRIGO 3 ll1 20:35 Initial Sepsis Screen: Does the patient have a suspected source of infection? No. wh Patient's initial sepsis screen is negative. Historical: - Allergies: 19:54 No Known Allergies; ll1 - PMHx: 19:54 lung CA; ll1 - PSHx: 19:54 brain radiation; ll1 - Immunization history:: Flu vaccine is not up to date. - Social history:: Smoking status: Patient/guardian denies using tobacco, Stopped _ months ago .2 Patient/guardian denies using alcohol, street drugs. - Family history:: not pertinent. - Hospitalizations: : No recent hospitalization is reported. Screenin:45 Abuse screen: Denies threats or abuse. Denies injuries from another. Nutritional wh screening: No deficits noted. Tuberculosis screening: No symptoms or risk factors identified. Fall Risk None identified. Assessment: 20:33 General: Appears in no apparent distress. Behavior is calm, cooperative, appropriate wh for age. Pain: Denies pain. Neuro: Level of Consciousness is awake, alert, obeys commands, Oriented to person, place, time, situation, Appropriate for age Reports MUSCLE CRAMPING OB BOTH ARMS AND LEGS. Cardiovascular: Heart tones S1 S2. Respiratory: Airway is patent Respiratory effort is even, unlabored, Respiratory pattern is regular, symmetrical, Breath sounds are clear bilaterally. GI: Abdomen is flat, non-distended. : No signs and/or symptoms were reported regarding the genitourinary system. EENT: No signs and/or symptoms were reported regarding the EENT system. Derm: Skin is intact, is healthy with good turgor, Skin is pink, warm \T\ dry. normal. Musculoskeletal: Circulation, motion, and sensation intact. 21:45 Reassessment: Patient appears in no apparent distress at this time. No changes from previously documented assessment. Patient and/or family updated on plan of care and expected duration. Pain level reassessed. Patient is alert, oriented x 3, equal unlabored respirations, skin warm/dry/pink. Vital Signs: 19:51 BP 134 / 92; Pulse 96; Resp 18; Temp 97.3; Pulse Ox 98% ; Pain 8/10; ll1 20:30 BP 112 / 79; Pulse 91; Resp 18; Pulse Ox 99% on R/A; wh 21:47 BP 122 / 72; Pulse 80; Resp 18; Pulse Ox 100% on R/A; ED Course: 19:36 Patient arrived in ED. bp1 19:53 Triage completed. ll1 19:55 Arm band placed on. ll1 20:31 Taylor Hernandez is Primary Nurse. wh 20:31 Rohit Love MD is Attending Physician. rn 20:45 Patient has correct armband on for positive identification. Bed in low position. Call light in reach. Side rails up X 1. Pulse ox on. NIBP on. 20:45 No provider procedures requiring assistance completed. Inserted saline lock: 20 gauge wh in left antecubital area, using aseptic technique. Blood collected. 21:46 IV discontinued, intact, bleeding controlled, No redness/swelling at site. Administered Medications: 20:53 Drug: NS 0.9% 1000 ml Route: IV; Rate: 1000 ml; Site: left antecubital; 21:47 Follow up: Response: No adverse reaction; IV Status: Completed infusion 22:10 Drug: Calcium Carbonate 500 mg 2 tablet Route: PO; 22:14 Follow up: Response: No adverse reaction Outcome: 21:36 Discharge ordered by . rn 22:14 Discharged to home ambulatory. 22:14 Condition: stable 22:14 Discharge instructions given to patient, Instructed on discharge instructions, follow up and referral plans. POC Demonstrated understanding of instructions, follow-up care, POC 22:15 Patient left the ED. Signatures: Rohit Love MD MD rn David, Eleazar Kenney RN RN ll1 Hyacinth Brown [facility]
[2020-07-17] MEDS ORDERED: CALCIUM CARBONATE 500 MG TAB ONE (22:17)
[2020-07-17 22:28] VITALS: TEMP 97.3
[2020-07-17 22:31] VITALS: BP 122/72; O2SAT 100
== END 2020-07-17 22:15 | disposition home or self-care (01) ==
LOC: ER 19:33
DX: E83.51 Hypocalcemia (principal); C34.90 Malignant neoplasm of unspecified part of unspecified bronchus or lung
CPT/HCPCS: 80048; 36415; 83735; 96360; 99284; J7030

== ENCOUNTER 2020-08-02 04:52 | Emergency (ER) | payer OTHER ==
--- OUTSIDE RECORDS SUMMARY | 2020-08-02 04:55 | XMS REPORT | Continuity of Care Document ---
:1960 Author Organization [facility] t Address [address] [place] [address] Care Team Providers Name Role Phone SYSTEM, PROVIDER NOT IN Attending Clinician Unavailable Payers Payer Name Policy Type Policy Number Effective Date Expiration Date [facility] esarr1975 2020 MD Dharmesh gold [facility] 00:00:00 COMMUNITY MEDICAID STAR PLUS [id number] 020-PresentMedica id Problems This patient has no known problems. Allergies, Adverse Reactions, Alerts Allergy Allergy Status Severity Reaction(s) Onset Inactive Treating Comm ents Source Name Type Date Date Clinician No Known DA Active U [facility] Allergie 8-12 Pearlan s 00:00: d 00 [facility] Social History Social Habit Start Date Stop Date Quantity Comments Source Sex Assigned At MD Villalobos Medications This patient has no known medications. Procedures This patient has no known procedures. Encounters Start End Encounter Admission Attending Care Care Encounter Source Date/Time Date/Time Type Type Clinicians Facility Department ID 2020-05-05 Outpatient SYSTEM, [facility] MARK [id number] 16:22:21 PROVIDER Luis o n Results Test Description Test Time Test Comments Results Result Sourc e Comments - XR FLUOROSCOPY 2020-06-18 Name: MAURO OLMEDO 0-60 MIN 09:29:00 [facility] Claude : 1960 Age/S: 60 / M [id number] Unit #: [id number] Loc: [place] [address] Phys: Sarah Sanford MD Acct: [id number] Dis Date: Status: REG [facility] PHONE #: [phone] Exam Date: 06/18/2020 0845 FAX #: Reason: PORT-A-CATH INSERTION EXAMS: CPT: [id number] XR FLUOROSCOPY 0-60 MIN 30310 Fluoro Time: 9 SEC DAP (Gy m2): [...] PAGE 1 Signed Report Name: MAURO OLMEDO [facility] : 1960 Age/S: 60 / M [address] Unit #: [id number] Loc: [place] [address] Phys: Sarah Sanford MD Acct: [id number] Dis Date: Status: REG [facility] PHONE #: [phone] Exam Date: 06/18/2020 0845 FAX #: Reason: PORT-A-CATH INSERTION EXAMS: CPT: [id number] XR FLUOROSCOPY 0-60 MIN 90037 Fluoro Time: 9 SEC DAP (Gy m2): Air Kerma (mGy): <Continued> Technologist: Marlen Dumont RT(R) Trnscb Date/Time: 06/18/2020 (928) [email or web address] Orig Print D/T: S: 06/18/2020 (32) PAGE 2 Signed Report - XR CHEST 1 V 2020-06-18 Name: MAURO OLMEDO 09:25:00 [facility] : 1960 Age/S: 60 / M [address] Unit #: [id number] Loc: [place] [address] Phys: Sarah Sanford MD Acct: [id number] Dis Date: Status: REG [facility] PHONE #: [phone] Exam Date: 06/18/2020909 FAX #: Reason: s/p port a cath insertion EXAMS: CPT: [id number] XR CHEST 1 V 29701 Fluoro Time: DAP (Gy m2): Air Kerma [...] PAGE 1 Signed Report Name: MAURO OLMEDO [facility] : 1960 Age/S: 60 / M [address] Unit #: [id number] Loc: [place] [address] Phys: Sarah Sanford MD Acct: [id number] Dis Date: Status: REG [facility] PHONE #: [phone] Exam Date: 06/18/2020909 FAX #: Reason: s/p port a cath insertion EXAMS: CPT: [id number] XR CHEST 1 V 03612 Fluoro Time: DAP (Gy m2): Air Kerma (mGy): <Continued> Technologist: Keesha Prasad, RT(R)(CT); Marlen Dumont RT(R) Trnscb Date/Time: 06/18/2020 (924) [email or web address] Orig Print D/T: S: 06/18/2020 (927) PAGE 2 Signed Report COVID 19 INHOUSE AG 2020-06-16 09:57:00 Test Item Value Reference Range Interpretation Comme nts COVID 19 INHOUSE AG (test code = NEGATIVE Negative Per tool sharpener, negative [id number]) results should be treated aspresumptive a nd, [...]
[2020-08-02] MEDS ORDERED: NA CHLORIDE 0.9% 0 ML ONE (05:37)
[2020-08-02 05:50] LABS: Absolute Lymphocytes (CBC) 1.8 K/uL (0.7-4.9); Basophils % 1.1 % (0-1.3); Hematocrit 33.9 % (39.6-49.0); Lymphocytes % 19.7 % (15.3-44.8); RBC Red Blood Cell Count 4.27 M/uL (4.33-5.43)
[2020-08-02 05:56] LABS: Potassium 3.8 mmol/L (3.5-5.1)
[2020-08-02 06:41] LABS: Anisocytosis 1+; Blood Morphology Comment NOTED (NOT SEEN); Platelet Estimate INCR; Polychromasia 1+
--- NOTE | 2020-08-02 06:45 | EDPHYS ---
Physician Documentation [facility] Name: Tylor Delgadillo Age: 60 yrs Sex: Male : 1960 Arrival Date: 08/02/2020 Time: 04:54 Bed 16 Private MD: ED Physician Arsalan Cash HPI: 08/02 05:23 This 60 yrs old Male presents to ER via Ambulatory with complaints of pkl Shortness Of Breath. 05:23 The patient has shortness of breath at rest. Onset: The symptoms/episode began/occurred pkl just prior to arrival, 3 week(s) ago, and became worse. Associated signs and symptoms: Pertinent positives: productive cough. Patient diagnosed with lung Ca in April 2020. Started on chemo by Dr. Corey at [facility]. Historical: - Allergies: 05:12 No Known Allergies; bb - Home Meds: 05:12 Symbicort inhalation inhalation [Active]; chemo drug [Active]; bb - PMHx: 05:12 Cancer; Lung CA; bb - PSHx: 05:12 brain radiation; port a cath; bb - Immunization history:: Adult Immunizations up to date. - Social history:: Smoking status: Patient/guardian denies using tobacco. ROS: 05:23 Eyes: Negative for injury, pain, redness, and discharge, ENT: Negative for injury, pkl pain, and discharge, Neck: Negative for injury, pain, and swelling, Cardiovascular: Negative for chest pain, palpitations, and edema. 05:23 Respiratory: Positive for cough, with white sputum, shortness of breath, at rest. 05:23 Abdomen/GI: Negative for abdominal pain, nausea, vomiting, and diarrhea. 05:23 Back: Negative for acute changes. 05:23 : Negative for urinary symptoms. 05:23 MS/extremity: Negative for acute changes. 05:23 Skin: Negative for rash. 05:23 Neuro: Negative for altered mental status. Exam: 05:23 Head/Face: Normocephalic, atraumatic. Eyes: Pupils equal round and reactive to light, pkl extra-ocular motions intact. Lids and lashes normal. Conjunctiva and sclera are non-icteric and not injected. Cornea within normal limits. Periorbital areas with no swelling, redness, or edema. ENT: Nares patent. No nasal discharge, no septal abnormalities noted. Tympanic membranes are normal and external auditory canals are clear. Oropharynx with no redness, swelling, or masses, exudates, or evidence of obstruction, uvula midline. Mucous membranes moist. Neck: Trachea midline, no thyromegaly or masses palpated, and no cervical lymphadenopathy. Supple, full range of motion without nuchal rigidity, or vertebral point tenderness. No Meningismus. Chest/axilla: Normal chest wall appearance and motion. Nontender with no deformity. No lesions are appreciated. Cardiovascular: Regular rate and rhythm with a normal S1 and S2. No gallops, murmurs, or rubs. Normal PMI, no JVD. No pulse deficits. 05:23 Respiratory: mild respiratory distress is noted, Respirations: labored breathing, that is mild, Breath sounds: rales, that are moderate, are scattered. 05:23 Abdomen/GI: Bowel sounds: normal, Palpation: abdomen is soft and non-tender, in all quadrants. 05:23 Back: Exam negative for acute changes. 05:23 : Exam negative for acute changes. 05:23 Musculoskeletal/extremity: Exam is negative for acute changes. 05:23 Skin: Exam negative for rash. 05:23 Neuro: Orientation: is normal, Mentation: is normal, Cranial nerves: grossly normal, Motor: is normal. Vital Signs: 05:06 BP 116 / 74; Pulse 98; Resp 18 S; Temp 98.6(A); Pulse Ox 95% on R/A; Weight 74.84 kg bb (R); Height 6 ft. 0 in. (182.88 cm) (R); Pain 6/10; 06:30 BP 124 / 97; Pulse 87; Resp 18; Pulse Ox 95% on R/A; wh 05:06 Body Mass Index 22.38 (74.84 kg, 182.88 cm) bb MDM: 04:55 Patient medically screened. pkl 06:40 Data reviewed: vital signs, nurses notes, lab test result(s), radiologic studies, plain pkl films. ED course: Patient feeling better. Want to go home and keep his appt. with Dr. Kign today. Vital signs stable. Advised to return if symptoms are worse. Patient understood instructions. 06:58 ED course: Dr. Marino returned call. Notified him patient feeling better and will keep pkl appt. with him today. 08/02 05:22 Order name: CBC with Diff pkl 08/02 05:22 Order name: Chem 7 pkl 08/02 05:22 Order name: ABG pkl 08/02 05:51 Order name: CBC with Automated Diff; Complete Time: 06:50 EDMS 08/02 05:56 Order name: Basic Metabolic Panel; Complete Time: 05:57 EDMS 08/02 06:41 Order name: Manual Differential; Complete Time: 06:50 EDMS 08/02 05:22 Order name: XRAY CXR (1 view) pkl 08/02 05:22 Order name: EKG - Nurse/Tech; Complete Time: 05:22 Administered Medications: 05:30 Drug: NS 0.9% 1000 ml Route: IV; Rate: 100 ml/hr; Site: right antecubital; 06:52 Follow up: Response: No adverse reaction; IV Status: Completed infusion Disposition: 08/02/20 06:45 Discharged to Home. Impression: Ca lung with metastasis. Dyspnea. Possible pneumonia. - Condition is Stable. - Medication Reconciliation Form, Thank You Letter, Antibiotic Education, Prescription Opioid Use form. - Follow up: Private Physician; When: Today; Reason: Re-evaluation by your physician. - Problem is new. - Symptoms have improved. Signatures: Dispatcher [employer] Arsalan Rubio MD MD pkl Ballard, Brenda RN RN Taylor Damon Corrections: (The following items were deleted from the chart) 06:53 06:45 08/02/2020 06:45 Discharged to Home. Impression: Ca lung with metastasis. wh Dyspnea. Possible pneumonia. Condition is Stable. Forms are Medication Reconciliation Form, Thank You Letter, Antibiotic Education, Prescription Opioid Use. Follow up: Private Physician; When: Today; Reason: Re-evaluation by your physician. Problem is new. Symptoms have improved. pkl
--- NOTE | 2020-08-02 06:45 | ER ---
Nurse's Notes [facility] Name: Tylor Delgadillo Age: 60 yrs Sex: Male : 1960 Arrival Date: 08/02/2020 Time: 04:54 Bed 16 Private MD: Diagnosis: Ca lung with metastasis. Dyspnea. Possible pneumonia Presentation: 08/02 05:06 Chief complaint: Patient states: he has been having SOB x 3 weeks which is getting bb progressively worse he was diagnosed with lung and brain cancer 8 weeks ago and is seeing Dr Corona in [facility] for treatment. Coronavirus screen: Client presents with at least one sign or symptom that may indicate coronavirus-19. Standard/surgical mask placed on the client. Ebola Screen: No symptoms or risks identified at this time. Initial Sepsis Screen: Does the patient meet any 2 criteria? No. Patient's initial sepsis screen is negative. Does the patient have a suspected source of infection? No. Patient's initial sepsis screen is negative. Risk Assessment: Do you want to hurt yourself or someone else? Patient reports no desire to harm self or others. Onset of symptoms was August 02, 2020. 05:06 Method Of Arrival: Ambulatory bb 05:06 Acuity: RODRIGO 2 bb Triage Assessment: 05:31 Respiratory: Onset: The symptoms/episode began/occurred at an unknown time. the patient wh reports symptoms have resolved. Historical: - Allergies: 05:12 No Known Allergies; bb - Home Meds: 05:12 Symbicort inhalation inhalation [Active]; chemo drug [Active]; bb - PMHx: 05:12 Cancer; Lung CA; bb - PSHx: 05:12 brain radiation; port a cath; bb - Immunization history:: Adult Immunizations up to date. - Social history:: Smoking status: Patient/guardian denies using tobacco. Screenin:31 Abuse screen: Denies threats or abuse. Denies injuries from another. Nutritional wh screening: No deficits noted. Tuberculosis screening: No symptoms or risk factors identified. Fall Risk None identified. Assessment: 05:30 General: Appears in no apparent distress. Behavior is calm, cooperative, appropriate wh for age. Pain: Complains of pain in chest Pain does not radiate. Pain currently is 3 out of 10 on a pain scale. Quality of pain is described as dull. Neuro: Level of Consciousness is awake, alert, obeys commands, Oriented to person, place, time, situation, Appropriate for age. Cardiovascular: Heart tones S1 S2 Rhythm is regular. Respiratory: Airway is patent Respiratory effort is even, unlabored, Respiratory pattern is regular, symmetrical, Breath sounds are diminished. Respiratory: Reports shortness of breath. GI: Abdomen is flat, non-distended. : No signs and/or symptoms were reported regarding the genitourinary system. EENT: No signs and/or symptoms were reported regarding the EENT system. Derm: Skin is intact. Musculoskeletal: Circulation, motion, and sensation intact. 06:35 Reassessment: Patient appears in no apparent distress at this time. No changes from previously documented assessment. Patient and/or family updated on plan of care and expected duration. Pain level reassessed. Patient is alert, oriented x 3, equal unlabored respirations, skin warm/dry/pink. Vital Signs: 05:06 BP 116 / 74; Pulse 98; Resp 18 S; Temp 98.6(A); Pulse Ox 95% on R/A; Weight 74.84 kg bb (R); Height 6 ft. 0 in. (182.88 cm) (R); Pain 6/10; 06:30 BP 124 / 97; Pulse 87; Resp 18; Pulse Ox 95% on R/A; wh 05:06 Body Mass Index 22.38 (74.84 kg, 182.88 cm) ED Course: 04:54 Patient arrived in ED. cl3 04:55 Arsalan Cash MD is Attending Physician. pkl 05:11 Triage completed. 05:12 Arm band placed on Patient placed in an exam room, on a stretcher, on pulse oximetry. EKG completed in triage. Results shown to MD. 05:15 Inserted saline lock: 18 gauge in right antecubital area, using aseptic technique. ds4 Blood collected. 05:21 Taylor Hernandez is Primary Nurse. 05:31 Patient has correct armband on for positive identification. Bed in low position. Call light in reach. Side rails up X 1. extrusion utility worker on. Pulse ox on. NIBP on. 06:51 No provider procedures requiring assistance completed. IV discontinued, intact, bleeding controlled, No redness/swelling at site. Administered Medications: 05:30 Drug: NS 0.9% 1000 ml Route: IV; Rate: 100 ml/hr; Site: right antecubital; 06:52 Follow up: Response: No adverse reaction; IV Status: Completed infusion Outcome: 06:45 Discharge ordered by . murray 06:52 Discharged to home ambulatory. 06:52 Condition: stable 06:52 Discharge instructions given to patient, Instructed on discharge instructions, follow up and referral plans. Demonstrated understanding of instructions, follow-up care, POC 06:53 Patient left the ED. Signatures: Arsalan Cash MD MD pkl Ballard, Brenda, RN RN Joesph Mcneill ds4 Taylor Hernandez Maicol Lopez cl3
[2020-08-02 06:59] VITALS: TEMP 98.6; O2SAT 95
[2020-08-02 07:00] VITALS: BP 124/97
[2020-08-02] MEDS ORDERED: NA CHLORIDE 0.9% 1,000 ML ONE (07:50)
--- NOTE | 2020-08-02 08:37 | RAD REPORT ---
EXAM DESCRIPTION: RAD - Chest Single View - 08/02/2020 5:51 am CLINICAL HISTORY: DYSPNEA, recent diagnosis of lung malignancy COMPARISON: CT chest July 26, portable chest June 23 TECHNIQUE: AP portable chest image was obtained 08/02/2020 5:51 am . FINDINGS: Large malignant mass of the left hilum and anterior left upper lung field again noted. Rig ht Port-A-Cath is in place. Lung volumes are reduced compared to the prior study. Interstitial markin gs are accentuated throughout both lung miller with additional alveolar opacification surrounding the left lung mass and extending into the left base. Heart and vasculature are normal. No measurable ple ural effusion and no pneumothorax. No acute bony abnormality seen. No acute aortic findings suspected . IMPRESSION: New airspace opacification around the known left lung mass and also the left base. Superimposed pneumonia is favored. Overall interstitial opacification increased since comparison. This is possibly edema related to emily tment, volume overload or concurrent pneumonia.
== END 2020-08-02 06:53 | disposition home or self-care (01) ==
LOC: ER 04:52
DX: C34.90 Malignant neoplasm of unspecified part of unspecified bronchus or lung (principal); C79.31 Secondary malignant neoplasm of brain
CPT/HCPCS: 93005; 85025; 80048; 36415; 71045; 96360; 99284; J7030

== ENCOUNTER 2020-12-03 07:42 | Emergency (ER) | payer OTHER ==
--- OUTSIDE RECORDS SUMMARY | 2020-12-03 07:44 | XMS REPORT | Continuity of Care Document ---
:1960 Author Organization [facility] t Address [address] [place] [address] Care Team Providers Name Role Phone SYSTEM, PROVIDER NOT IN Attending Clinician Unavailable James DICK Attending Clinician Payers Payer Name Policy Type Policy Number Effective Date Expiration Date [facility] [id number] 2020 MD Dharmesh gold [facility] 00:00:00 COMMUNITY MEDICAID STAR PLUS [id number]/06 020-PresentMedica id Problems This patient has no known problems. Allergies, Adverse Reactions, Alerts Allergy Allergy Status Severity Reaction(s) Onset Inactive Treating Comm ents Source Name Type Date Date Clinician No Known DA Active U [facility] Allergie 06-16 Pearlan s 00:00: d 00 [facility] Social History Social Habit Start Date Stop Date Quantity Comments Source Sex Assigned At MD Villalobos Medications This patient has no known medications. Procedures This patient has no known procedures. Encounters Start End Encounter Admission Attending Care Care Encounter Source Date/Time Date/Time Type Type Clinicians Facility Department ID 2020-05-05 Outpatient SYSTEM, [facility] [id number] 16:22:21 PROVIDER Luis west 2020-10-11 2020-10-11 Office DEMIAN Ramirez [id number] 09:25:36 09:55:36 Visit Renetta CAIN [id number] HAGERMAN SURINDER [id number] Results Test Description Test Time Test Comments Results Result Sourc e Comments - XR FLUOROSCOPY 2020-06-18 Name: MAURO OLMEDO 0-60 MIN 09:29:00 [facility] : 1960 Age/S: 60 / M [address] Unit #: [id number] Loc: [place] [address] Phys: Sarah Sanford MD Acct: [id number] Dis Date: Status: REG [facility] PHONE #: [phone] Exam Date: 06/18/2020 0845 FAX #: Reason: PORT-A-CATH INSERTION EXAMS: CPT: [id number] XR FLUOROSCOPY 0-60 MIN 77646 Fluoro Time: 9 SEC DAP (Gy m2): [...] PAGE 1 Signed Report Name: MAURO OLMEDO [facility] : 1960 Age/S: 60 / M [address] Unit #: [id number] Loc: [place] [address] Phys: Sarah Sanford MD Acct: [id number] Dis Date: Status: REG [facility] PHONE #: [phone] Exam Date: 06/18/2020 0845 FAX #: Reason: PORT-A-CATH INSERTION EXAMS: CPT: [id number] XR FLUOROSCOPY 0-60 MIN 46765 Fluoro Time: 9 SEC DAP (Gy m2): Air Kerma (mGy): <Continued> Technologist: Marlen Dumont RT(R) Trnscb Date/Time: 06/18/2020 (928) [email or web address] Orig Print D/T: S: 06/18/2020 (0932) PAGE 2 Signed Report - XR CHEST 1 V 2020-06-18 Name: MAURO OLMEDO 09:25:00 [facility] : 1960 Age/S: 60 / M [address] Unit #: [id number] Loc: [place] [address] Phys: Sarah Sanford MD Acct: [id number] Dis Date: Status: REG [facility] PHONE #: [phone] Exam Date: 06/18/2020909 FAX #: Reason: s/p port a cath insertion EXAMS: CPT: [id number] XR CHEST 1 V 22104 Fluoro Time: DAP (Gy m2): Air Kerma [...] PAGE 1 Signed Report [facility]: [facility] 1960 Age/S: 60 / M [address] Unit #: [id number] Loc: [place] [address] Phys: Sarah Sanford MD Acct: [id number] Dis Date: Status: REG [facility] PHONE #: [phone] Exam Date: 06/18/2020 0910 FAX #: Reason: s/p port a cath insertion EXAMS: CPT: [id number] XR CHEST 1 V 97061 Fluoro Time: DAP (Gy m2): Air Kerma (mGy): <Continued> Technologist: Keesha Prasad, RT(R)(CT); Marlen Dumont, RT(R) Trnscb Date/Time: 06/18/2020 (924) [email or web address] Orig Print D/T: S: 06/18/2020 (7442) PAGE 2 Signed Report COVID 19 INHOUSE AG 2020-06-16 09:57:00 Test Item Value Reference Range Interpretation Comme nts COVID 19 INHOUSE AG (test code = NEGATIVE Negative Per environmental education specialist, negative [id number]) results should be treated aspresumptive a nd, if inconsistent wi clinical signs andsymptoms or necessary for patient [...]
[2020-12-03] MEDS ORDERED: IPRATROPIUM BROM 0.5MG/2.5ML ONE (08:44)
[2020-12-03 09:09] LABS: Basophils % 0.1 % (0-1.3); Hematocrit 36.1 % (39.6-49.0); Lymphocytes % 15.5 % (15.3-44.8); RBC Red Blood Cell Count 4.52 M/uL (4.33-5.43)
[2020-12-03] MEDS ORDERED: ALBUTEROL 2.5 MG/3 ML NEB SOL ONE ×2 (09:09→09:33)
[2020-12-03 09:13] LABS: Protime INR 1.36
[2020-12-03] MEDS ORDERED: ONDANSETRON 4 MG/2 ML VIAL ONE (09:25)
[2020-12-03 09:55] LABS: ALT/SGPT 22 U/L (12-78); AST/SGOT 20 U/L (15-37); Albumin 1.8 g/dL (3.4-5.0); Alkaline Phosphatase 152 U/L (45-117); BUN Blood Urea Nitrogen 15 mg/dL (7-18); Bicarbonate 28 mmol/L (21-32); Bilirubin Direct 0.2 mg/dL (0-0.2); Bilirubin Total 0.5 mg/dL (0.2-1.0); Ferritin 4163.6 ng/mL (26-388); Glucose Level 78 mg/dL (74-106); Lipase 135 U/L (73-393); Potassium 3.7 mmol/L (3.5-5.1); Protein, Total 7.4 g/dL (6.4-8.2); Sodium Level 139 mmol/L (136-145); Troponin (Emerg Dept Use Only) < 0.02 ng/mL (0.0-0.045)
--- NOTE | 2020-12-03 10:18 | ER ---
Nurse's Notes [facility] Name: Tylor Delgadillo Age: 60 yrs Sex: Male : 1960 Arrival Date: 12/03/2020 Time: 07:43 Bed 6 Private MD: Diagnosis: Shortness of breath;Other chest pain;Constipation;Lung cancer with mets to the brain and liver Presentation: 12/03 07:45 Chief complaint: Patient states: SOB x1 WK, ACTIVE CHEMO/XRT PT. Coronavirus screen: bp cough unrelated to allergies, difficulty breathing, Client presents with at least one sign or symptom that may indicate coronavirus-19. Standard/surgical mask placed on the client. Provider contacted for isolation considerations. Ebola Screen: No symptoms or risks identified at this time. Initial Sepsis Screen: Does the patient meet any 2 criteria? HR > 90 bpm. Does the patient have a suspected source of infection? No. Patient's initial sepsis screen is negative. Risk Assessment: Do you want to hurt yourself or someone else? Patient reports no desire to harm self or others. Onset of symptoms is unknown. 07:45 Method Of Arrival: Ambulatory bp 07:45 Acuity: RODRIGO 3 bp Triage Assessment: 08:00 General: Appears distressed, uncomfortable, Behavior is cooperative, appropriate for bp age, anxious. Pain: Denies pain. EENT: No deficits noted. Neuro: No deficits noted. Cardiovascular: Rhythm is sinus rhythm. Respiratory: Reports shortness of breath cough that is Breath sounds with crackles Breath sounds with wheezes Onset: The symptoms/episode began/occurred gradually, the patient has moderate shortness of breath. GI: No signs and/or symptoms were reported involving the gastrointestinal system. : No signs and/or symptoms were reported regarding the genitourinary system. Derm: No deficits noted. Musculoskeletal: No deficits noted. Historical: - Allergies: 07:57 No Known Allergies; bp - PMHx: 07:57 Lung CA; Cancer; BRAIN; LIVER CA; bp - Immunization history:: Adult Immunizations up to date. - Social history:: Smoking status: unknown Patient uses. Screenin:45 Abuse screen: Denies threats or abuse. Denies injuries from another. Nutritional bp screening: No deficits noted. Tuberculosis screening: No symptoms or risk factors identified. Fall Risk None identified. Assessment: 08:00 General: SEE TRIAGE NOTE. bp 09:00 Cardiovascular: Rhythm is sinus rhythm. Respiratory: Airway is patent Respiratory bp effort is even, labored, Breath sounds are coarse bilaterally. 10:00 Reassessment: PT AMA FROM HOSPITAL, REFUSING CT/PE. PT COUNSELED BY MD AND STAFF, BUT bp REFUSED. PT SIGNED AMA FORM. PT URGED TO RETURN IF S/S RETURN OR WORSEN. Vital Signs: 07:45 BP 118 / 89; Pulse 95; Resp 23; Temp 97.6; Pulse Ox 97% ; Weight 83.01 kg; Height 6 ft. bp (182.88 cm); 09:15 BP 119 / 78; Pulse 83; Resp 16; Pulse Ox 100% ; bp 10:14 BP 128 / 79; Pulse 76; Resp 22; Temp 97.5; Pulse Ox 98% ; bp 07:45 Body Mass Index 24.82 (83.01 kg, 182.88 cm) bp ED Course: 07:43 Patient arrived in ED. ds1 07:47 Ozzie Rodriguez MD is Attending Physician. kdr 07:47 Jose Means, GEO is Primary Nurse. bp 07:55 Triage completed. bp 08:34 CXR XRAY In Process Unspecified. EDMS 08:45 Inserted saline lock: 20 gauge in right forearm, using aseptic technique. Blood bp collected. 08:45 Patient has correct armband on for positive identification. Bed in low position. Call bp light in reach. Side rails up X2. 10:14 No provider procedures requiring assistance completed. IV discontinued, intact, bp bleeding controlled, No redness/swelling at site. Pressure dressing applied. Administered Medications: 08:30 Drug: Albuterol - atroVENT (3:1) (2.5 mg - 0.5 mg) 3 ml Route: Nebulizer; bp 10:16 Follow up: Response: Marked relief of symptoms bp 10:30 Drug: TORadol - Ketorolac 15 mg Route: IM; Site: right deltoid; jl7 10:36 Follow up: Response: Medication administered at discharge. jl7 Outcome: 10:14 AMA AMA form signed bp 10:14 Condition: stable 10:17 Patient left the ED. bp 10:36 Patient left the ED. jl7 Signatures: Dispatcher [employer] EDMS Ozzie Rodriguez MD MD kdr Sanford, Demi ds1 Adam Rivero, RN RN jl7 Jose Means RN RN bp Corrections: (The following items were deleted from the chart) 07:57 General: Appears distressed, uncomfortable, Behavior is calm, cooperative, bp appropriate for age, bp : 07:57 Pain: Denies pain. bp bp
--- NOTE | 2020-12-03 10:18 | EDPHYS ---
Physician Documentation [facility] Name: Tylor Delgadillo Age: 60 yrs Sex: Male : 1960 Arrival Date: 12/03/2020 Time: 07:43 Bed 6 Private MD: ED Physician Ozzie Rodriguez HPI: 12/03 08:39 This 60 yrs old Male presents to ER via Ambulatory with complaints of kdr Shortness Of Breath. 08:39 The patient has shortness of breath at rest, with light activity. Onset: The kdr symptoms/episode began/occurred gradually, 2 week(s) ago, Worse the last few days. 08:40 Duration: The symptoms are continuous, and are steadily getting worse. The patient's kdr shortness of breath is aggravated by coughing, exertion, light activity, talking, walking. Associated signs and symptoms: Pertinent positives: contipation. Severity of symptoms: At their worst the symptoms were moderate in the emergency department the symptoms are unchanged. The patient has experienced similar episodes in the past, chronically, but today's symptoms are worse. The patient has not recently seen a physician, Is getting caner treatment every three weeks - lung with mets to liver and brain. Historical: - Allergies: 07:57 No Known Allergies; bp - PMHx: 07:57 Lung CA; Cancer; BRAIN; LIVER CA; bp - Immunization history:: Adult Immunizations up to date. - Social history:: Smoking status: unknown Patient uses. ROS: 08:40 Constitutional: Negative for fever, chills, and weight loss, Eyes: Negative for injury, kdr pain, redness, and discharge, ENT: Negative for injury, pain, and discharge, Neck: Negative for injury, pain, and swelling, Cardiovascular: Negative for chest pain, palpitations, and edema, Back: Negative for injury and pain, : Negative for injury, bleeding, discharge, and swelling, MS/Extremity: Negative for injury and deformity, Skin: Negative for injury, rash, and discoloration, Neuro: Negative for headache, weakness, numbness, tingling, and seizure activity. Psych: Negative for depression, anxiety, suicide ideation, homicidal ideation, and hallucinations, Allergy/Immunology: Negative for hives, rash, and allergies, Endocrine: Negative for neck swelling, polydipsia, polyuria, polyphagia, and marked weight changes. 08:40 Respiratory: Positive for cough, "sounds productive", dyspnea on exertion, shortness of breath, Negative for hemoptysis, orthopnea, pleurisy, wheezing. 08:40 Abdomen/GI: Positive for abdominal pain, constipation, Negative for diarrhea, abdominal distension, anorexia, dysphagia, hematemesis, black/tarry stool, rectal pain. Exam: 08:40 Constitutional: This is a well developed, well nourished patient who is awake, alert, kdr and in no acute distress. Head/Face: Normocephalic, atraumatic. Eyes: Pupils equal round and reactive to light, extra-ocular motions intact. Lids and lashes normal. Conjunctiva and sclera are non-icteric and not injected. Cornea within normal limits. Periorbital areas with no swelling, redness, or edema. Neck: Trachea midline, no thyromegaly or masses palpated, and no cervical lymphadenopathy. Supple, full range of motion without nuchal rigidity, or vertebral point tenderness. No Meningismus. Chest/axilla: Normal chest wall appearance and motion. Nontender with no deformity. No lesions are appreciated. Abdomen/GI: Soft, non-tender, with normal bowel sounds. No distension or tympany. No guarding or rebound. No evidence of tenderness throughout. Back: No spinal tenderness. No costovertebral tenderness. Full range of motion. Skin: Warm, dry with normal turgor. Normal color with no rashes, no lesions, and no evidence of cellulitis. MS/ Extremity: Pulses equal, no cyanosis. Neurovascular intact. Full, normal range of motion. Neuro: Awake and alert, GCS 15, oriented to person, place, time, and situation. Cranial nerves II-XII grossly intact. Motor strength 5/5 in all extremities. Sensory grossly intact. Cerebellar exam normal. Normal gait. Psych: Awake, alert, with orientation to person, place and time. Behavior, mood, and affect are within normal limits. 08:40 Respiratory: mild respiratory distress is noted, Respirations: normal, symetrical, no use of accessory muscles, no grunting, no evidence of nasal flaring, Breath sounds: rales, bronchial sounds, that are mild, are scattered, are heard diffusely. 08:40 ECG was reviewed by the Attending Physician. kdr Vital Signs: 07:45 BP 118 / 89; Pulse 95; Resp 23; Temp 97.6; Pulse Ox 97% ; Weight 83.01 kg; Height 6 ft. bp (182.88 cm); 09:15 BP 119 / 78; Pulse 83; Resp 16; Pulse Ox 100% ; bp 10:14 BP 128 / 79; Pulse 76; Resp 22; Temp 97.5; Pulse Ox 98% ; bp 07:45 Body Mass Index 24.82 (83.01 kg, 182.88 cm) bp MDM: 08:40 Data reviewed: vital signs, nurses notes, lab test result(s), EKG, radiologic studies. kdr 10:24 Patient medically screened. kdr 12/03 07:49 Order name: Blood Culture Adult (2) kdr 12/03 07:49 Order name: BMP kdr 12/03 07:49 Order name: C-Reactive Protein kdr 12/03 07:49 Order name: CBC with Diff kdr 12/03 07:49 Order name: D-Dimer; Complete Time: 09:55 kdr 12/03 07:49 Order name: Ferritin kdr 12/03 07:49 Order name: Lactate; Complete Time: 09:55 kdr 12/03 07:49 Order name: LFT's kdr 12/03 07:49 Order name: Lipase kdr 12/03 07:49 Order name: Procalcitonin; Complete Time: 09:55 kdr 12/03 07:49 Order name: PT-INR; Complete Time: 09:55 kdr 12/03 07:49 Order name: Ptt, Activated; Complete Time: 09:55 kdr 12/03 07:49 Order name: Strep kdr 12/03 07:49 Order name: Troponin (emerg Dept Use Only) kdr 12/03 07:50 Order name: CXR XRAY kdr 12/03 07:50 Order name: EKG; Complete Time: 07:51 kdr 12/03 07:50 Order name: Cardiac monitoring; Complete Time: 08:50 kdr 12/03 07:50 Order name: Droplet/Contact Precautions; Complete Time: 08:50 kdr 12/03 07:50 Order name: Blood Culture EDMS 12/03 07:50 Order name: Basic Metabolic Panel EDMS 12/03 07:50 Order name: C-Reactive Protein EDMS 12/03 09:11 Order name: Manual Differential EDMS 12/03 07:50 Order name: EKG - Nurse/Tech; Complete Time: 08:50 kdr 12/03 07:50 Order name: IV Start; Complete Time: 08:50 kdr 12/03 07:50 Order name: Labs collected and sent; Complete Time: 08:50 kdr 12/03 07:50 Order name: O2 Per Protocol; Complete Time: 08:11 kdr 12/03 07:50 Order name: O2 Sat Monitoring; Complete Time: 08:11 kdr EC:40 Rate is 87 beats/min. Rhythm is irregular, Sinus Rhythm with PACs. QRS Apollo is Normal. kdr NH interval is normal. QRS interval is normal. QT interval is normal. Clinical impression: NSR w/ Non-specific ST/T Changes and Sinus arrythmia. Administered Medications: 08:30 Drug: Albuterol - atroVENT (3:1) (2.5 mg - 0.5 mg) 3 ml Route: Nebulizer; bp 10:16 Follow up: Response: Marked relief of symptoms bp 10:30 Drug: TORadol - Ketorolac 15 mg Route: IM; Site: right deltoid; jl7 10:36 Follow up: Response: Medication administered at discharge. jl7 Disposition: 12/03/20 10:17 Patient has left against medical advice. Impression: Shortness of breath, Other chest pain, Constipation, Lung cancer with mets to the brain and liver. - Patients states they are going to Home. - Condition is Stable. - Discharge Instructions: Nonspecific Chest Pain, Shortness of Breath, Constipation, Adult, [id number]. Follow up: Private Physician; When: 2 - 3 days; Reason: If symptoms return, Further diagnostic work-up, Recheck today's complaints, Continuance of care, Re-evaluation by your physician. - Problem is an ongoing problem. - Symptoms have improved. Signatures: Dispatcher [employer] EDMD Ozzie Rodriguez MD MD kdr Jodie Rosas, RN RN Adam Pizano RN RN jl7 Jose Means, RN RN bp Corrections: (The following items were deleted from the chart) 10:16 08:10 Chest For PE Angio+CT.RAD.BRZ ordered. EDMD EDMS 10:24 10:17 12/03/2020 10:17 Patients has left against medical advice. Patient states they kdr are going to Home. Condition is Stable. bp 10:36 10:24 12/03/2020 10:17 Patients has left against medical advice. Impression: Shortness jl7 of breath; Other chest pain; Constipation; Lung cancer with mets to the brain and liver. Patient states they are going to Home. Condition is Stable. Follow up: Private Physician; When: 2 - 3 days; Reason: If symptoms return, Further diagnostic work-up, Recheck today's complaints, Continuance of care, Re-evaluation by your physician. Problem is an ongoing problem. Symptoms have improved. kdr
[2020-12-03 10:24] VITALS: BP 128/79; TEMP 97.5; O2SAT 98
[2020-12-03] MEDS ORDERED: KETOROLAC 30 MG/ML INJ ONE (10:46)
--- NOTE | 2020-12-03 12:05 | RAD REPORT ---
EXAM DESCRIPTION: Jaciel Single View12/03/2020 9:14 am CLINICAL HISTORY: Shortness of breath COMPARISON: July 2020 FINDINGS: A large left lung mass present. The additional bilateral pulmonary opacities have resolved. Heart is normal size. A central venous li ne has its tip in the superior vena cava
[2020-12-03 12:16] LABS: SARS-COV-2 RT PCR NEGATIVE (NEGATIVE)
[2020-12-03 14:55] LABS: Blood Morphology Comment NOT SEEN (NOT SEEN); Platelet Estimate ADEQ
--- NOTE | 2020-12-04 14:25 | EKG ---
Test Date: 2020-12-03 Test Time: 08:32:04 Lot Porter: NAVEEN MEASUREMENT RESULTS: Intervals: Rate: 87 CA: 120 QRSD: 76 QT: 354 QTc: 425 Norman: P: 48 CA: 120 QRS: 3 T: -14 INTERPRETIVE STATEMENTS: Sinus rhythm with premature atrial complexes with aberrant conduction Otherwise normal ECG Compared to ECG 08/02/2020 05:11:06 Atrial premature complex(es) now present Aberrant conduction of supraventricular beat(s) now present Electronically Signed On 12-04-20 14:23:08 CLERK CHECKER by Cheo Cuellar
== END 2020-12-03 10:36 | disposition left against medical advice (07) ==
LOC: ER 07:42
DX: R06.02 Shortness of breath (principal); R07.89 Other chest pain; K59.00 Constipation, unspecified; C34.90 Malignant neoplasm of unspecified part of unspecified bronchus or lung; C78.7 Secondary malignant neoplasm of liver and intrahepatic bile duct; C79.31 Secondary malignant neoplasm of brain; Z92.21 Personal history of antineoplastic chemotherapy; Z20.822 Contact with and (suspected) exposure to COVID-19
CPT/HCPCS: 93005; 87040 ×2; 85025; 80048; 36415; 85610; 85379; 80076; 87081; 83605; 85730; 84484; 82728; 83690; 84145; 0240U; 86140; 71045; 96372; 99285; J2405

== ENCOUNTER 2020-12-16 12:56 | Inpatient (IN) | payer OTHER ==
[2020-12-16 14:20] LABS: Absolute Lymphocytes (CBC) 1.1 K/uL (0.7-4.9); Basophils % 0.2 % (0-1.3); Hematocrit 26.6 % (39.6-49.0); Lymphocytes % 8.8 % (15.3-44.8); MPV 6.3 fL (7.6-11.3); RBC Red Blood Cell Count 3.35 M/uL (4.33-5.43)
[2020-12-16 14:21] LABS: Protime INR 2.18
[2020-12-16 14:39] LABS: ALT/SGPT 12 U/L (12-78); AST/SGOT 16 U/L (15-37); Albumin 1.7 g/dL (3.4-5.0); Alkaline Phosphatase 139 U/L (45-117); BUN Blood Urea Nitrogen 25 mg/dL (7-18); Bicarbonate 21 mmol/L (21-32); Bilirubin Direct 0.2 mg/dL (0-0.2); Bilirubin Total 0.5 mg/dL (0.2-1.0); Glucose Level 90 mg/dL (74-106); Magnesium 2.1 mg/dL (1.8-2.4); NT PRO-BNP 1030 pg/mL (<125); Potassium 3.6 mmol/L (3.5-5.1); Protein, Total 7.3 g/dL (6.4-8.2); Sodium Level 143 mmol/L (136-145); Troponin (Emerg Dept Use Only) < 0.02 ng/mL (0.0-0.045)
--- NOTE | 2020-12-16 14:47 | RAD REPORT ---
EXAM DESCRIPTION: RAD - Chest Single View - 12/16/2020 2:36 pm CLINICAL HISTORY: SOB, lung cancer COMPARISON: Portable chest December 03, CT chest October 2020 TECHNIQUE: AP portable chest image was obtained 12/16/2020 2:36 pm . FINDINGS: Large mid left lung masses noted. There is parenchymal stranding in the lower left lung fi eld new from comparison. This could be infiltrate or atelectasis. Patient has chronic interstitial celina ng disease on the right with no acute right-sided finding. Right-sided Port-A-Cath is in place. Heart and vasculature are normal. No measurable pleural effusion and no pneumothorax. No acute bony abnormality seen. No acute aortic findings suspected. IMPRESSION: Infiltrate and/ or atelectasis left lung base. Large mass in the left mid chest has not changed from December 03.
[2020-12-16 15:18] LABS: SARS-COV-2 RT PCR NEGATIVE (NEGATIVE)
--- NOTE | 2020-12-16 15:37 | ER ---
Nurse's Notes [facility] Name: Tylor Delgadillo Age: 60 yrs Sex: Male : 1960 Arrival Date: 12/16/2020 Time: 12:58 Bed 17 Private MD: Diagnosis: Pneumonia due to other specified bacteria;Anemia in other chronic diseases classified elsewhere Presentation: 12/16 13:09 Chief complaint: Patient states: SOB on exertion X 2 days, has hx of lung cancer, iw reports mild cough, no fever. Coronavirus screen: Client presents with at least one sign or symptom that may indicate coronavirus-19. Ebola Screen: Patient negative for fever greater than or equal to 101.5 degrees Fahrenheit, and additional compatible Ebola Virus Disease symptoms Patient denies exposure to infectious person. Patient denies travel to an Ebola-affected area in the 21 days before illness onset. No symptoms or risks identified at this time. Initial Sepsis Screen: Does the patient meet any 2 criteria? No. Patient's initial sepsis screen is negative. Does the patient have a suspected source of infection? No. Patient's initial sepsis screen is negative. Risk Assessment: Do you want to hurt yourself or someone else? Patient reports no desire to harm self or others. Onset of symptoms was December 14, 2020. 13:09 Method Of Arrival: Wheelchair iw 13:09 Acuity: RODRIGO 3 iw Triage Assessment: 13:30 Respiratory: Onset: The symptoms/episode began/occurred yesterday, the patient has mild rb3 shortness of breath. Historical: - Allergies: 13:11 No Known Allergies; iw - Home Meds: 13:11 Eliquis 5 mg oral tab 1 tab 2 times per day [Active]; iw - PMHx: 13:11 Cancer; BRAIN; LIVER CA; Lung CA; iw - PSHx: 13:11 None; iw - Immunization history:: Adult Immunizations Adult Immunizations not up to date. - Social history:: Smoking status: Patient/guardian denies using tobacco, Stopped _ months ago 5. Screenin:30 Abuse screen: Denies threats or abuse. Nutritional screening: No deficits noted. rb3 Tuberculosis screening: No symptoms or risk factors identified. Fall Risk None identified. Assessment: 13:30 General: Appears in no apparent distress. comfortable, Behavior is calm, cooperative, rb3 Denies fever. Neuro: Level of Consciousness is awake, alert, obeys commands, Oriented to person, place, time, situation. Cardiovascular: Patient's skin is warm and dry. Respiratory: Reports shortness of breath on exertion since x 2 days cough that is Airway is patent Respiratory effort is even, unlabored, Respiratory pattern is regular, symmetrical. 13:30 GI: No signs and/or symptoms were reported involving the gastrointestinal system. : rb3 No signs and/or symptoms were reported regarding the genitourinary system. 14:30 Reassessment: Patient appears in no apparent distress at this time. Patient and/or rb3 family updated on plan of care and expected duration. Pain level reassessed. Patient is alert, oriented x 3, equal unlabored respirations, skin warm/dry/pink. 15:30 Reassessment: Patient appears in no apparent distress at this time. No changes from rb3 previously documented assessment. Pt. is talking on the telephone. 16:30 Reassessment: Patient appears in no apparent distress at this time. Patient and/or rb3 family updated on plan of care and expected duration. Pain level reassessed. Patient is alert, oriented x 3, equal unlabored respirations, skin warm/dry/pink. 17:28 Reassessment: Patient appears in no apparent distress at this time. No changes from rb3 previously documented assessment. 19:14 Reassessment: Patient appears in no apparent distress at this time. Patient and/or mg2 family updated on plan of care and expected duration. Pain level reassessed. informed about the room assignment. Vital Signs: 13:09 BP 111 / 81; Pulse 107; Resp 18 S; Temp 98.4; Pulse Ox 98% on R/A; Weight 86.18 kg; iw Height 6 ft. 1 in. (185.42 cm); 14:30 BP 118 / 81; Pulse 94; Resp 20; Pulse Ox 98% ; rb3 15:30 BP 105 / 66; Pulse 71; Resp 18; Pulse Ox 98% ; rb3 16:30 BP 123 / 76; Pulse 91; Resp 19; Pulse Ox 98% ; rb3 17:30 BP 116 / 63; Pulse 92; Resp 18; Pulse Ox 97% ; rb3 18:30 BP 103 / 75; Pulse 95; Resp 17; Pulse Ox 98% ; rb3 19:13 BP 115 / 89; Pulse 80; Resp 18; Pulse Ox 96% on R/A; mg2 13:09 Body Mass Index 25.07 (86.18 kg, 185.42 cm) iw ED Course: 12:58 Patient arrived in ED. ag5 13:11 Triage completed. iw 13:12 Arm band placed on. iw 13:24 Gregg Samuel PA is PHCP. cp 13:24 Ozzie Rodriguez MD is Attending Physician. cp 13:30 Patient has correct armband on for positive identification. Bed in low position. Call rb3 light in reach. Side rails up X 1. Pulse ox on. NIBP on. 13:39 Sirisha Whipple, GEO is Primary Nurse. rb3 14:10 Inserted saline lock: 22 gauge in left wrist, using aseptic technique. ,using aseptic rb3 technique. IV inserted by GEO HEMPHILL. Blood collected. 14:36 XRAY Chest (1 view) In Process Unspecified. EDMS 15:35 Brooke Ji MD is Hospitalizing Provider. cp 17:00 T\T\S collected, blood band applied to patient. rb3 19:30 No provider procedures requiring assistance completed. Patient admitted, IV remains in mg2 place. Administered Medications: 15:40 CANCELLED (Duplicate Order): Zithromax 500 mg IVPB once over 1 hrs; mix in 250 mL NS rb3 15:47 Drug: Rocephin 1 grams Route: IV; Rate: calculated rate; Site: left wrist; rb3 16:00 Follow up: Response: No adverse reaction; IV Status: Completed infusion rb3 15:50 Drug: Zithromax 500 mg Route: IVPB; Infused Over: 1 hrs; Site: left wrist; rb3 16:00 Follow up: Response: No adverse reaction; IV Status: Completed infusion rb3 Outcome: 15:36 Decision to Hospitalize by Provider. cp 19:30 Admitted to Tele accompanied by nurse, via stretcher, room 217, with chart, Report mg2 called to GEO [place] 19:30 Condition: stable 19:30 Instructed on the need for admit, Demonstrated understanding of instructions. 19:52 Patient left the ED. mg2 Signatures: Dispatcher [employer] EDMS Priya Sultana RN RN Gregg Samuel PA PA cp Eduardo Slater RN RN [facility] [place] ag5 Sirisha Whipple, RN RN rb3 Corrections: (The following items were deleted from the chart) 13:45 13:30 Respiratory: Reports shortness of breath on exertion Airway is patent Respiratory rb3 effort is even, unlabored, Respiratory pattern is regular, symmetrical, rb3 18:57 14:00 Inserted rb3 rb3
--- NOTE | 2020-12-16 15:37 | EDPHYS ---
Physician Documentation [facility] Name: Tylor Delgadillo Age: 60 yrs Sex: Male : 1960 Arrival Date: 12/16/2020 Time: 12:58 Bed 17 Private MD: ED Physician Ozzie Rodriguez HPI: 12/16 13:42 This 60 yrs old Male presents to ER via Wheelchair with complaints of cp Shortness Of Breath. 13:42 The patient has shortness of breath at rest. Onset: The symptoms/episode began/occurred cp 1 week(s) ago. Duration: The symptoms are continuous, and are steadily getting worse. Associated signs and symptoms: Pertinent positives: productive cough, Pertinent negatives: chest pain, fever. 13:42 Patient reports history of lung CA and that he is currently receiving chemo and cp radiation treatments. Historical: - Allergies: 13:11 No Known Allergies; iw - Home Meds: 13:11 Eliquis 5 mg oral tab 1 tab 2 times per day [Active]; iw - PMHx: 13:11 Cancer; BRAIN; LIVER CA; Lung CA; iw - PSHx: 13:11 None; iw - Immunization history:: Adult Immunizations Adult Immunizations not up to date. - Social history:: Smoking status: Patient/guardian denies using tobacco, Stopped _ months ago 5. ROS: 13:45 Constitutional: Negative for body aches, chills, fever, poor PO intake. cp 13:45 Eyes: Negative for injury, pain, redness, and discharge. cp 13:45 ENT: Negative for ear pain, sore throat, difficulty swallowing, difficulty handling secretions. 13:45 Cardiovascular: Negative for chest pain, edema, palpitations. 13:45 Respiratory: Positive for cough, "sounds productive", shortness of breath, on exertion. Negative for wheezing. 13:45 Abdomen/GI: Negative for abdominal pain, nausea, vomiting, and diarrhea. 13:45 Neuro: Negative for altered mental status, headache, syncope, weakness. 13:45 All other systems are negative. Exam: 13:50 Constitutional: The patient appears in no acute distress, alert, awake, cp non-diaphoretic, non-toxic, well developed, well nourished. 13:50 Head/Face: Normocephalic, atraumatic. cp 13:50 Eyes: Periorbital structures: appear normal, Conjunctiva: normal, no exudate, no injection, Sclera: no appreciated abnormality, Lids and lashes: appear normal, bilaterally. 13:50 ENT: External ear(s): are unremarkable, Nose: is normal, Mouth: Lips: moist, Oral mucosa: moist, Posterior pharynx: Airway: no evidence of obstruction, patent. 13:50 Neck: ROM/movement: is normal, is supple, without pain, no range of motions limitations. 13:50 Chest/axilla: Inspection: normal, Palpation: is normal, no crepitus, no tenderness. 13:50 Cardiovascular: Rate: tachycardic, Rhythm: regular, Edema: is not appreciated, JVD: is not appreciated. 13:50 Respiratory: the patient does not display signs of respiratory distress, Respirations: labored breathing, that is mild, shallow respirations, that is mild, Breath sounds: bronchial sounds, that are moderate, are heard in the right posterior middle lobe and right posterior lower lobe, stridor, is not appreciated, wheezing: is not appreciated. 13:50 Abdomen/GI: Inspection: abdomen appears normal, Bowel sounds: active, all quadrants, Palpation: abdomen is soft and non-tender, in all quadrants. 13:50 Back: pain, is absent, ROM is normal. 13:50 Skin: cellulitis, is not appreciated, no rash present. 13:50 Neuro: Orientation: to person, place \\T\\ time. Mentation: is normal, Motor: moves all fours, strength is normal. 15:00 ECG was reviewed by the Attending Physician. cp Vital Signs: 13:09 BP 111 / 81; Pulse 107; Resp 18 S; Temp 98.4; Pulse Ox 98% on R/A; Weight 86.18 kg; iw Height 6 ft. 1 in. (185.42 cm); 14:30 BP 118 / 81; Pulse 94; Resp 20; Pulse Ox 98% ; rb3 15:30 BP 105 / 66; Pulse 71; Resp 18; Pulse Ox 98% ; rb3 16:30 BP 123 / 76; Pulse 91; Resp 19; Pulse Ox 98% ; rb3 17:30 BP 116 / 63; Pulse 92; Resp 18; Pulse Ox 97% ; rb3 18:30 BP 103 / 75; Pulse 95; Resp 17; Pulse Ox 98% ; rb3 19:13 BP 115 / 89; Pulse 80; Resp 18; Pulse Ox 96% on R/A; mg2 13:09 Body Mass Index 25.07 (86.18 kg, 185.42 cm) iw MDM: 13:42 Patient medically screened. cp 14:00 Differential diagnosis: Chronic Obstructive Pulmonary Disease Myocardial Infarction cp pneumonia, Pneumothorax pulmonary edema, Pulmonary Embolism Sepsis Unstable Angina. 15:33 Data reviewed: vital signs, nurses notes, lab test result(s), radiologic studies, plain cp films. Test interpretation: by ED physician or midlevel provider: ECG, plain radiologic studies. Physician consultation: Brooke Ji MD was called at 15:33, was contacted at 15:33, regarding admission, to the telemetry unit. 12/16 13:42 Order name: Basic Metabolic Panel 12/16 13:42 Order name: CBC with Diff 12/16 13:42 Order name: LFT's 12/16 13:42 Order name: Magnesium cp 12/16 13:42 Order name: NT PRO-BNP 12/16 13:42 Order name: PT-INR 12/16 13:42 Order name: Troponin (emerg Dept Use Only) cp 12/16 13:42 Order name: COVID-19 : Document "Date of Symptom Onset" if Symptomatic. 12/16 13:42 Order name: Blood Culture Adult (2) cp 12/16 13:42 Order name: Lactate; Complete Time: 15:02 cp 12/16 13:42 Order name: Urine Microscopic Only cp 12/16 13:42 Order name: Procalcitonin; Complete Time: 15:28 cp 12/16 13:42 Order name: Basic Metabolic Panel; Complete Time: 15:02 EDMS 12/16 15:03 Interpretation: Normal except: CL 110; BUN 25; CRE 1.66; GFR 42; CA 8.3. cp 12/16 13:42 Order name: CBC with Automated Diff; Complete Time: 17:44 EDMS 12/16 15:03 Interpretation: Normal except: WBC 12.70; RBC 3.35; HGB 8.4; HCT 26.6; MCV 79.3; MCH cp 24.9; MCHC 31.5; PLT 449; RDW 18.8; MPV 6.3; GETACHEW% 82.4; LYM% 8.8; NEUT A 10.4. 12/16 13:42 Order name: Liver (Hepatic) Function; Complete Time: 15:02 [facility] 12/16 15:04 Interpretation: Normal except: ALK 139; ALB 1.7; GLOB 5.6; A/G 0.3. 12/16 13:42 Order name: Magnesium; Complete Time: 15:02 [facility] 12/16 13:42 Order name: NT PRO-BNP; Complete Time: 15:02 [facility] 12/16 15:04 Interpretation: Abnormal: NT PRO-BNP 1030. 12/16 13:42 Order name: Protime (+INR); Complete Time: 15:02 [facility] 12/16 15:07 Interpretation: Abnormal: PT 25.3. 12/16 13:42 Order name: Troponin (Emerg Dept Use Only); Complete Time: 15:02 [facility] 12/16 15:18 Order name: COVID-19/FLU A+B; Complete Time: 15:28 [facility] 12/16 15:54 Order name: Type And Screen; Complete Time: 17:44 12/16 17:51 Order name: Comprehensive Metabolic Panel [facility] 12/16 17:51 Order name: Comprehensive Metabolic Panel; Complete Time: 17:44 [facility] 12/16 17:51 Order name: Lactate [facility] 12/16 17:51 Order name: Lactate; Complete Time: 17:44 [facility] 12/16 17:51 Order name: Lipid Profile [facility] 12/16 17:51 Order name: Lipid Profile; Complete Time: 17:44 [facility] 12/16 17:51 Order name: Magnesium [facility] 12/16 13:42 Order name: XRAY Chest (1 view); Complete Time: 15:02 12/16 15:06 Interpretation: Report review. 12/16 13:42 Order name: EKG; Complete Time: 13:42 12/16 13:42 Order name: Cardiac monitoring; Complete Time: 14:21 12/16 13:42 Order name: EKG - Nurse/Tech; Complete Time: 15:07 12/16 13:42 Order name: IV Saline Lock; Complete Time: 14:21 12/16 13:42 Order name: Labs collected and sent; Complete Time: 14:21 12/16 13:42 Order name: O2 Per Protocol; Complete Time: 14:22 12/16 13:42 Order name: O2 Sat Monitoring; Complete Time: 14:22 cp 12/16 17:51 Order name: Magnesium; Complete Time: 17:44 EDMS 12/16 17:51 Order name: Phosphorus EDMS 12/16 17:51 Order name: Phosphorus; Complete Time: 17:44 EDMS 12/16 17:51 Order name: Heart Healthy EDMS 12/16 17:51 Order name: CBC with Automated Diff EDMS 12/16 17:51 Order name: CBC with Automated Diff; Complete Time: 17:44 EDMS 12/16 17:51 Order name: NT PRO-BNP EDMS 12/16 17:51 Order name: NT PRO-BNP; Complete Time: 17:44 EDMS 12/16 18:15 Order name: ABO/RH no charge; Complete Time: 17:44 EDMS EC:00 Rate is 87 beats/min. Rhythm is regular. VA interval is normal. QRS interval is normal. cp QT interval is normal. Interpreted by me. Reviewed by me. Administered Medications: 15:40 CANCELLED (Duplicate Order): Zithromax 500 mg IVPB once over 1 hrs; mix in 250 mL NS rb3 15:47 Drug: Rocephin 1 grams Route: IV; Rate: calculated rate; Site: left wrist; rb3 16:00 Follow up: Response: No adverse reaction; IV Status: Completed infusion rb3 15:50 Drug: Zithromax 500 mg Route: IVPB; Infused Over: 1 hrs; Site: left wrist; rb3 16:00 Follow up: Response: No adverse reaction; IV Status: Completed infusion rb3 Disposition: 12/17 06:50 Co-signature as Attending Physician, Ozzie Rodriguez MD I agree with the assessment and kdr plan of care. Disposition: 12/16/20 15:36 Hospitalization ordered by Brooke Ji for Inpatient Admission. Preliminary diagnosis are Pneumonia due to other specified bacteria, Anemia in other chronic diseases classified elsewhere. - Bed requested for Telemetry/MedSurg (Inpatient). - Status is Inpatient Admission. mg2 - Condition is Stable. - Problem is new. - Symptoms have improved. Signatures: Dispatcher [employer] [facility] Laura Pemberton RN RN dw Rittger, Kevin, MD MD [facility] Priya Sultana RN RN iw Page, Corey, PA PA cp Eduardo Slater, RN RN mg2 Sirisha Whipple, RN RN rb3 Corrections: (The following items were deleted from the chart) 12/16 14: 13:42 CORONAVIRUS ordered. EDMS EDMS 14:31 13:42 Influenza Screen (A \\T\\ B)+[id number].LAB.BRZ ordered. EDMS EDMS 15:03 15:02 Normal except: CL 110; BUN 25; CRE 1.66; GFR 42. cp cp 15:40 15:09 Zithromax 500 mg IVPB once over 1 hrs; mix in 250 mL NS ordered. cp rb3 15:55 15:36 Hospitalization Ordered by Brooke Ji MD for Inpatient Admission. Preliminary cp diagnosis is Pneumonia due to other specified bacteria. Bed requested for Telemetry/MedSurg (Inpatient). Status is Inpatient Admission. Condition is Stable. Problem is new. Symptoms have improved. cp 18:46 15:55 12/16/2020 15:36 Hospitalization Ordered by Brooke Ji MD for Inpatient dw Admission. Preliminary diagnosis is Pneumonia due to other specified bacteria; Anemia in other chronic diseases classified elsewhere. Bed requested for Telemetry/MedSurg (Inpatient). Status is Inpatient Admission. Condition is Stable. Problem is new. Symptoms have improved. cp 19:52 18:46 12/16/2020 15:36 Hospitalization Ordered by Brooke Ji MD for Inpatient mg2 Admission. Preliminary diagnosis is Pneumonia due to other specified bacteria; Anemia in other chronic diseases classified elsewhere. Bed requested for Telemetry/MedSurg (Inpatient). Status is Inpatient Admission. Condition is Stable. Problem is new. Symptoms have improved. dw
[2020-12-16] MEDS ORDERED: CEFTRIAXONE/SWI 1gm 1 GM/10 ML SYR ONE (15:45)
[2020-12-16] MEDS ORDERED: AZITHROMYCIN IV 500 MG in NA CHLORIDE 0.9% 250 ML IVPB ONE (16:00)
[2020-12-16] MEDS ORDERED: ACETAMINOPHEN 500 MG TAB PO PRN (17:48)
[2020-12-16] MEDS: NA CHLORIDE 0.9% 1,000 ML IV SCH (18:00)
[2020-12-16] MEDS ORDERED: ENOXAPARIN 40 MG/0.4 ML SQ SCH (19:00)
[2020-12-16] MEDS ORDERED: NA CHLORIDE 0.9% 1,000 ML ONE (19:05)
[2020-12-16] MEDS: IPRATROPIUM BROM 0.5MG/2.5ML NEB SCH (20:10)
[2020-12-16] MEDS: ALBUTEROL 2.5 MG/3 ML NEB SOL NEB SCH (20:10)
[2020-12-16] MEDS ORDERED: POTASSIUM CL SA 10 MEQ TAB PO ONE (21:00)
[2020-12-16 21:29] LABS: Blood Morphology Comment NOTED (NOT SEEN); Platelet Estimate INCR
[2020-12-16 21:30] LABS: Anisocytosis 2+; Polychromasia 1+
[2020-12-16] MEDS: CEFTRIAXONE/SWI 1gm 1 GM/10 ML SYR IVP SCH (21:39)
[2020-12-16] MEDS: APIXABAN 5 MG TABLET PO SCH (21:39)
[2020-12-16] MEDS: HYDROCODONE/APAP 5/325 MG TAB PO PRN (23:19)
[2020-12-17] MEDS: ALBUTEROL 2.5 MG/3 ML NEB SOL NEB SCH ×4 (01:25→19:30)
[2020-12-17] MEDS: IPRATROPIUM BROM 0.5MG/2.5ML NEB SCH ×4 (01:25→19:30)
[2020-12-17 01:46] VITALS: BMI 22.8
[2020-12-17 05:26] LABS: Absolute Lymphocytes (CBC) 1.1 K/uL (0.7-4.9); Basophils % 0.1 % (0-1.3); Hematocrit 26.3 % (39.6-49.0); Lymphocytes % 10.9 % (15.3-44.8); MPV 6.2 fL (7.6-11.3); RBC Red Blood Cell Count 3.26 M/uL (4.33-5.43)
[2020-12-17 05:40] LABS: Albumin 1.6 g/dL (3.4-5.0); Bilirubin Total 0.4 mg/dL (0.2-1.0); Magnesium 2.1 mg/dL (1.8-2.4); Phosphorus 2.9 mg/dL (2.5-4.9); Potassium 3.2 mmol/L (3.5-5.1); Protein, Total 6.7 g/dL (6.4-8.2)
[2020-12-17] MEDS: NA CHLORIDE 0.9% 1,000 ML IV SCH (06:42)
[2020-12-17] MEDS: ONDANSETRON 4 MG/2 ML VIAL IV PRN ×2 (06:42→22:39)
[2020-12-17] MEDS: CEFTRIAXONE/SWI 1gm 1 GM/10 ML SYR IVP SCH (08:02)
[2020-12-17] MEDS ORDERED: ZOLPIDEM TARTRATE 12.5 MG PO PRN (08:02)
[2020-12-17] MEDS: APIXABAN 5 MG TABLET PO SCH ×3 (08:02→22:54)
[2020-12-17] MEDS ORDERED: PROCHLORPERAZINE 5 MG TAB PO PRN (08:02)
[2020-12-17] MEDS: HYDROCODONE/APAP 5/325 MG TAB PO PRN (08:03)
--- NOTE | 2020-12-17 08:12 | P.HP ---
Certification for Inpatient Patient admitted to: Inpatient With expected LOS: >2 Midnights Patient will require the following post-hospital care: None Practitioner: I am a practitioner with admitting privileges, knowledge of patient current condition, hospital course, and medical plan of care. Services: Services provided to patient in accordance with Admission requirements found in Title 42 Section 412.3 of the Code of Federal Regulations Patient History Date of Service: 12/16/20 Reason for admission: Left lower lobe pneumonia History of Present Illness: Patient is a 60-year-old gentleman who came to the hospital with progressive shortness of breath. Patient has a history of lung cancer with metastasis to the liver. Recent CT scan imaging showed that the mass had gotten larger. Workup in the hospital showing that patient has a left lower lobe pneumonia. The mass was in the left upper lobe. Concern is that it has continued to enlarge and is possibly causing a postobstructive pneumonia. I will need to go ahead and get further imaging studies including a CT scan. However his renal function is poor and will have to wait told that improve before we can get a good look with a contrasted image. Will consult with his oncologist and discuss further options for the patient. At this time my plan is to treat with IV antibiotics for the next 48 hr and anticipate discharge in 72 hr. However, a postobstructive pneumonia than it may take a few days more to treat with intravenous antibiotics. Allergies No Known Allergies Allergy (Verified 05/21/20 08:26) Home Medications: Apixaban [Eliquis] 5 mg PO BID 12/16/20 Buspirone HCl [Buspar] 10 mg PO TID 12/16/20 Hydrocodone 10/APAP 325 [[place] 10/325] 1 tab PO TID 12/16/20 Prochlorperazine Maleate 10 mg PO Q6H PRN 12/16/20 Zolpidem Tartrate [Ambien Cr] 12.5 mg PO BEDTIME PRN 12/16/20 dexAMETHasone [Dexamethasone] 4 mg PO TID 12/16/20 - Past Medical/Surgical History Has patient received pneumonia vaccine in the past: No Diabetic: No -: brain Ca -: liver Ca -: lung Ca - Family History Father Family History: Reviewed- Non-Contributory - Social History Smoking Status: Former smoker Alcohol use: No CD- Drugs: Yes Caffeine use: Yes Place of Residence: Home Review of Systems 10-point ROS is otherwise unremarkable Physical Examination - Vital Signs Temperature: 97.8 F Blood Pressure: 111/79 Pulse: 69 Respirations: 18 Pulse Ox (%): 94 - Physical Exam General: Alert, In no apparent distress, Oriented x3 HEENT: Atraumatic, PERRLA, Mucous membr. moist/pink, EOMI, Sclerae nonicteric Neck: Supple, 2+ carotid pulse no bruit, No LAD, Without JVD or thyroid abnormality Respiratory: Diminished (Diminished breath sounds in the left upper and lower lobe with rhonchi) Cardiovascular: Regular rate/rhythm, Normal S1 S2, No murmurs Gastrointestinal: Normal bowel sounds, Soft and benign, Non-distended, No tenderness Musculoskeletal: No clubbing, No swelling, No tenderness Integumentary: No rashes Neurological: Normal gait, Normal speech, Normal strength at 5/5 x4 extr, Normal tone, Normal affect Lymphatics: No axilla or inguinal lymphadenopathy - Studies Laboratory Data (last 24 hrs) 12/16/20 14:05: PT 25.3 H, INR 2.18 12/16/20 14:05: WBC 12.70 H D, Hgb 8.4 L D, Hct 26.6 L D, Plt Count 449 H D 12/16/20 14:05: Sodium 143, Potassium 3.6, BUN 25 H, Creatinine 1.66 H, Glucose 90, Magnesium 2.1, Total Bilirubin 0.5, AST 16, ALT 12, Alkaline Phosphatase 139 H Assessment & Plan - Problems (Diagnosis) (1) Postobstructive pneumonia Current Visit: Yes Status: Acute (2) Cancer of upper lobe of left lung Current Visit: Yes Status: Acute (3) Pneumonia of left lower lobe due to infectious organism Current Visit: Yes Status: Acute (4) History of known metastasis to liver Current Visit: Yes Status: Acute (5) Acute renal insufficiency Current Visit: Yes Status: Acute (6) Elevated procalcitonin Current Visit: Yes Status: Acute - Plan 1. Continue with IV antibiotics 2. Awaiting sputum and blood culture 3. Mucomyst and may give additional meds to expedite CT with contrast studies 4. Will proceed with CT scan of the chest to evaluate for postobstructive pneumonia 5. Will Consult pulmonary if symptoms do not improve 6. Continue with nebs as needed 7. O2 per protocol 8. Continue with gentle hydration 9. Repeat labs including CBC and renal function in a.m. also repeat procalcitonin level 10. GI and DVT prophylaxis Discharge Plan: Home Plan to discharge in: Greater than 2 days - Advance Directives Does patient have a Living Will: No Does patient have a Durable POA for Healthcare: No - Code Status/Comfort Care Code Status Assessed: Yes Code Status: Full Code Critical Care: No Time Spent Managing PTS Care (In Minutes): 45
[2020-12-17] MEDS ORDERED: ZOLPIDEM TARTRATE 10 MG TABLET PO PRN (08:30)
[2020-12-17] MEDS: ACETYLCYST 20% 800 MG/4 ML VIAL PO SCH ×2 (09:00→21:00)
[2020-12-17] MEDS ORDERED: INFLUENZA VACCINE (for 3y+) 0.5 ML DOSE IMVAC ONE (09:00)
[2020-12-17] MEDS ORDERED: POTASSIUM CL SA 10 MEQ TAB PO ONE (09:00)
[2020-12-17] MEDS: D5W 1,000 ML with NA BICARB 8.4% 50 MEQ IV SCH ×4 (09:25→23:23)
[2020-12-17] MEDS: BUSPIRONE HCL 5 MG TABLET PO SCH ×3 (09:26→22:41)
[2020-12-17] MEDS: dexAMETHasone 4 MG TAB PO SCH ×3 (09:26→22:41)
[2020-12-17] MEDS: HYDROCODONE/APAP 10/325 TAB PO SCH ×3 (10:06→22:41)
[2020-12-17] MEDS: Levofloxacin500mg IV 500 MG/100 ML BAG IV SCH (16:19)
[2020-12-17] MEDS: HYDROMORPHONE HCL 0.5 MG/0.5 ML INJ IV PRN (16:20)
[2020-12-17] MEDS: PIPER/TAZO/NS 3.375gm 3.375 GM/100 ML BAG IVPB SCH (17:33)
[2020-12-17] MEDS: TEMAZEPAM 15 MG CAP PO PRN (23:45)
[2020-12-18] MEDS: PIPER/TAZO/NS 3.375gm 3.375 GM/100 ML BAG IVPB SCH ×3 (01:27→17:00)
[2020-12-18] MEDS: IPRATROPIUM BROM 0.5MG/2.5ML NEB SCH ×5 (02:05→20:00)
[2020-12-18] MEDS: ALBUTEROL 2.5 MG/3 ML NEB SOL NEB SCH ×5 (02:05→20:00)
[2020-12-18 02:06] LABS: Urine Appearance CLEAR; Urine Bilirubin NEGATIVE (NEG); Urine Blood NEGATIVE (NEG); Urine Color YELLOW; Urine Glucose NEGATIVE (NEG); Urine Protein TRACE (NEG); Urine Specific Gravity 1.015 (1.005-1.030); Urine pH 5.5 (5.0-7.0)
[2020-12-18 02:38] LABS: Urine Amorphous Sediment 1+ /HPF (NONE SEEN); Urine Bacteria >50 /HPF (NONE SEEN); Urine Mucus 2+ /HPF (NONE SEEN)
[2020-12-18 02:39] LABS: Urine Coarse Granular Casts FEW /LPF (NONE SEEN); Urine Sperm PRESENT (NONE SEEN)
[2020-12-18] MEDS: HYDROMORPHONE HCL 0.5 MG/0.5 ML INJ IV PRN (06:09)
[2020-12-18 06:10] LABS: Absolute Lymphocytes (CBC) 0.6 K/uL (0.7-4.9); Basophils % 0.1 % (0-1.3); Hematocrit 21.1 % (39.6-49.0); Lymphocytes % 4.8 % (15.3-44.8); MPV 6.2 fL (7.6-11.3); RBC Red Blood Cell Count 2.65 M/uL (4.33-5.43)
[2020-12-18 06:30] LABS: Albumin 1.5 g/dL (3.4-5.0); Bilirubin Total 0.4 mg/dL (0.2-1.0); Magnesium 1.9 mg/dL (1.8-2.4); Potassium 4.2 mmol/L (3.5-5.1); Protein, Total 6.3 g/dL (6.4-8.2)
[2020-12-18] MEDS: BUSPIRONE HCL 5 MG TABLET PO SCH ×3 (08:17→20:33)
[2020-12-18] MEDS: dexAMETHasone 4 MG TAB PO SCH ×3 (08:17→20:35)
[2020-12-18] MEDS: ESCITALOPRAM 20 MG TAB PO SCH (08:17)
[2020-12-18] MEDS: HYDROCODONE/APAP 10/325 TAB PO SCH ×3 (08:18→20:34)
[2020-12-18] MEDS: ACETYLCYST 20% 800 MG/4 ML VIAL PO SCH ×2 (08:21→20:31)
[2020-12-18 08:41] LABS: Blood Morphology Comment NOT SEEN (NOT SEEN); Platelet Estimate ADEQ; White Blood Cell Scan OK (OK)
[2020-12-18] MEDS: APIXABAN 5 MG TABLET PO SCH ×2 (09:46→21:00)
[2020-12-18] MEDS ORDERED: NA CHLORIDE 0.9% 250 ML ONE ×2 (10:35→15:38)
[2020-12-18] MEDS: ONDANSETRON 4 MG/2 ML VIAL IV PRN ×2 (11:24→23:54)
--- NOTE | 2020-12-18 11:49 | RAD REPORT ---
EXAM DESCRIPTION: RAD - Chest Single View - 12/18/2020 5:16 am CLINICAL HISTORY: pneumonia Chest pain. COMPARISON: Chest Single View dated 12/16/2020; Chest Single View dated 12/03/2020; Chest Single View dated 08/02/2020; Chest Single View dated 06/23/2020; Chest Abdomen Pelvis W Cont dated 11/01/2020; [facility] st For Pe Angio dated 07/26/2020 FINDINGS: Portable technique limits examination quality. Right-sided venous catheter is in place with its tip in the SVC. Large left sided lung mass is again seen with linear opacities in the left lung base present likely atelectasis. The heart is mildly prom inent size.
[2020-12-18] MEDS: D5W 1,000 ML with NA BICARB 8.4% 50 MEQ IV SCH ×2 (12:00)
--- NOTE | 2020-12-18 12:13 | RAD REPORT ---
EXAM DESCRIPTION: CT - Thorax W/ Con CLINICAL HISTORY: Chest pain Right lower lobe pneumonia-rule out postobstructiv COMPARISON: Chest For Pe Angio dated 07/26/2020; Chest Abdomen Pelvis W Cont dated 11/01/2020 FINDINGS: Left upper lobe pulmonary mass lesion is again seen, appearing mildly increased in size pa rticularly along its superior component since prior study. Currently, measures 8.5 x 6.4 cm at the le ramo of the main pulmonary artery and 8.2 x 7.7 cm superiorly at the level of the aortic arch. Diffuse emphysema is present throughout the lungs. Mass effect is seen on the lingular bronchus from the large pulmonary mass. There is mild infiltrate pattern seen in the lingula suggesting a mild postobstructive pneumonia. A few mildly prominent lymph nodes are seen in the mediastinum, slightly enlarged since prior study. For example, AP window lymph node currently measures 10 mm, previously 8 mm. Liver metastasis again seen but somewhat difficult to fully assess due to phase of contrast enhanceme nt. Grossly, the liver lesions appear slightly larger. Small nodule is present in the right adrenal g land measuring 12 cm, appearing slightly larger than on the prior study. All CT scans are performed using dose optimization technique as appropriate and may include automated exposure control or mA/KV adjustment according to patient size. IMPRESSION: A mild postobstructive pneumonia suspected in the lingula. Interval mild disease progression is seen with mild increase in size of the left upper lobe mass, med iastinal lymph nodes and probable size increase of hepatic metastasis. Right adrenal mass has also de veloped currently measuring 12 mm.
[2020-12-18] MEDS: Levofloxacin500mg IV 500 MG/100 ML BAG IV SCH (15:48)
[2020-12-18 23:40] LABS: Hematocrit 29.2 % (39.6-49.0)
[2020-12-18] MEDS: TEMAZEPAM 15 MG CAP PO PRN (23:50)
[2020-12-19] MEDS: PIPER/TAZO/NS 3.375gm 3.375 GM/100 ML BAG IVPB SCH ×2 (01:25→09:03)
[2020-12-19] MEDS: D5W 1,000 ML with NA BICARB 8.4% 50 MEQ IV SCH ×2 (01:31)
[2020-12-19] MEDS: IPRATROPIUM BROM 0.5MG/2.5ML NEB SCH ×3 (02:00→14:00)
[2020-12-19] MEDS: ALBUTEROL 2.5 MG/3 ML NEB SOL NEB SCH ×3 (02:00→14:00)
--- NOTE | 2020-12-19 07:59 | EKG ---
Test Date: 2020-12-16 Test Time: 14:54:49 [place] [employer]: JOBY MEASUREMENT RESULTS: Intervals: Rate: 87 VA: 136 QRSD: 68 QT: 346 QTc: 416 [place]: P: 74 VA: 136 QRS: 11 T: -57 INTERPRETIVE STATEMENTS: Normal sinus rhythm Possible Left atrial enlargement Marked ST abnormality, possible inferior subendocardial injury Abnormal ECG Compared to ECG 12/03/2020 08:32:04 ST (T wave) deviation now present Atrial premature complex(es) no longer present Aberrant conduction of supraventricular beat(s) no longer present Electronically Signed On 12-19-20 07:53:57 PATIENT SUPPORT TECH by Cheo Cuellar
[2020-12-19 08:52] VITALS: TEMP 97.2
[2020-12-19] MEDS: ESCITALOPRAM 20 MG TAB PO SCH (09:00)
[2020-12-19] MEDS: BUSPIRONE HCL 5 MG TABLET PO SCH ×2 (09:01→14:16)
[2020-12-19] MEDS: APIXABAN 5 MG TABLET PO SCH (09:01)
[2020-12-19] MEDS: dexAMETHasone 4 MG TAB PO SCH ×2 (09:01→14:10)
[2020-12-19] MEDS: HYDROCODONE/APAP 10/325 TAB PO SCH ×2 (09:02→14:10)
[2020-12-19 12:35] VITALS: BP 135/82
--- NOTE | 2020-12-19 12:44 | P.PN ---
Subjective Date of Service: 12/17/20 Spoke to patient's oncologist yesterday. Patient with metastatic cancer with mets to the brain and the liver. Has not really responded to the initial chemotherapy and he started on immunotherapy. He just started the therapy. Hopefully he will respond. He has not been able to see his oncologist over the last week because he was not feeling well. His oncologist who advised him to go to the emergency room. That was where they found a pneumonia. Review of Systems 10-point ROS is otherwise unremarkable Physical Examination - Vital Signs Temperature: 97.2 F Blood Pressure: 135/82 Pulse: 66 Respirations: 18 Pulse Ox (%): 97 - Physical Exam General: Alert, In no apparent distress, Oriented x3 Respiratory: Clear to auscultation bilaterally, Normal air movement Cardiovascular: Regular rate/rhythm, Normal S1 S2 Gastrointestinal: Normal bowel sounds, No tenderness Musculoskeletal: No tenderness Integumentary: No rashes Neurological: Normal speech, Normal tone, Normal affect Lymphatics: No axilla or inguinal lymphadenopathy - Studies Medications List Reviewed: Yes Assessment & Plan - Problems (Diagnosis) (1) Postobstructive pneumonia Current Visit: Yes Status: Acute (2) Cancer of upper lobe of left lung Current Visit: Yes Status: Acute (3) Pneumonia of left lower lobe due to infectious organism Current Visit: Yes Status: Acute (4) History of known metastasis to liver Current Visit: Yes Status: Acute (5) Acute renal insufficiency Current Visit: Yes Status: Acute (6) Elevated procalcitonin Current Visit: Yes Status: Acute - Plan Continue with plan of care as mentioned below 1. Continue with IV antibiotics 2. Cultures are negative at this time 3. CT scan is pending for the morning once renal function stabilizes 4. Continue with nebs as needed 5. O2 per protocol 6. Continue with gentle hydration 7. Repeat labs including CBC and renal function in a.m. also repeat procalcitonin level 8. GI and DVT prophylaxis Discharge Plan: Home Plan to discharge in: Greater than 2 days - Advance Directives Does patient have a Living Will: No Does patient have a Durable POA for Healthcare: No - Code Status/Comfort Care Code Status: Full Code Critical Care: No Time Spent Managing PTS Care (In Minutes): 35
--- NOTE | 2020-12-19 12:46 | P.PN ---
Subjective Date of Service: 12/18/20 CT scan was completed. Pneumonia is very minimal in looks to have improved. However, Interval mild disease progression of the lung cancer with metastasis is seen. The size of the left upper lobe mass, mediastinal lymph nodes and probable size of hepatic metastasis have increased. Right adrenal mass has also developed currently measuring 12 mm. Review of Systems 10-point ROS is otherwise unremarkable Physical Examination - Vital Signs Temperature: 97.2 F Blood Pressure: 135/82 Pulse: 66 Respirations: 18 Pulse Ox (%): 97 - Physical Exam General: Alert, In no apparent distress, Oriented x3 Respiratory: Diminished, Other (Left lower lobe crackles) Cardiovascular: Regular rate/rhythm, Normal S1 S2, No murmurs Gastrointestinal: Normal bowel sounds, Soft and benign, Non-distended, No tenderness Musculoskeletal: No clubbing, No swelling, No tenderness Integumentary: No rashes Neurological: Normal speech, Normal tone, Normal affect Lymphatics: No axilla or inguinal lymphadenopathy - Studies Medications List Reviewed: Yes Assessment & Plan - Problems (Diagnosis) (1) Postobstructive pneumonia Current Visit: Yes Status: Acute (2) Cancer of upper lobe of left lung Current Visit: Yes Status: Acute (3) Pneumonia of left lower lobe due to infectious organism Current Visit: Yes Status: Acute (4) History of known metastasis to liver Current Visit: Yes Status: Acute (5) Acute renal insufficiency Current Visit: Yes Status: Acute (6) Elevated procalcitonin Current Visit: Yes Status: Acute - Plan Continue with plan of care as mentioned below 1. Continue with IV antibiotics 2. Cultures are negative at this time 3. CT scan as reported in subjective part of the note 4. Continue with nebs as needed 5. O2 per protocol 6. Continue with gentle hydration 7. Labs are stable anticipate discharge in the morning 8. GI and DVT prophylaxis Discharge Plan: Home Plan to discharge in: Greater than 2 days - Advance Directives Does patient have a Living Will: No Does patient have a Durable POA for Healthcare: No - Code Status/Comfort Care Code Status: Full Code Critical Care: No Time Spent Managing PTS Care (In Minutes): 35
--- NOTE | 2020-12-19 12:47 | P.DS ---
Discharge Date: 12/19/20 Disposition: ROUTINE DISCHARGE Discharge Condition: GOOD Reason for Admission: Left lower lobe pneumonia - Problems (1) Postobstructive pneumonia Current Visit: Yes Status: Acute (2) Cancer of upper lobe of left lung Current Visit: Yes Status: Acute (3) Pneumonia of left lower lobe due to infectious organism Current Visit: Yes Status: Acute (4) History of known metastasis to liver Current Visit: Yes Status: Acute (5) Acute renal insufficiency Current Visit: Yes Status: Acute (6) Elevated procalcitonin Current Visit: Yes Status: Acute Brief History of Present Illness: Patient is a 60-year-old gentleman who came to the hospital with progressive shortness of breath. Patient has a history of lung cancer with metastasis to the liver. Recent CT scan imaging showed that the mass had gotten larger. Wor kup in the hospital showing that patient has a left lower lobe pneumonia. The mass was in the left upper lobe. Concern is that it has continued to enlarge and is possibly causing a postobstructive pneumonia. I will need to go ahead and get further imaging studies including a CT scan. However his renal function is poor and will have to wait told that improve before we can get a good look with a contrasted image. Will consult with his oncologist and discuss further options for the patient. At this time my plan is to treat with IV antibiotics for the next 48 hr and anticipate discharge in 72 hr. However, a postobstructive pneumonia than it may take a few days more to treat with intravenous antibiotics. Hospital Course: Patient is improve during hospital stay. Continue with oral antibiotic therapy. Outpatient follow with Oncology. Will also arrange for nebulizer therapy. At this time, patient is stable for discharge with outpatient follow-up with Onclevar abdul. Vital Signs/Physical Exam: Temp Pulse Resp BP Pulse Ox 97.2 F 66 18 135/82 97 12/19/20 12:46 12/19/20 12:46 12/19/20 12:46 12/19/20 12:46 12/19/20 12:46 General: Alert, In no apparent distress, Oriented x3 Laboratory Data at Discharge: WBC 11.90 K/uL (4.3-10.9) H 12/18/20 05:55 Hgb 9.4 g/dL (13.6-17.9) L D 12/18/20 23:12 Hct 29.2 % (39.6-49.0) L D 12/18/20 23:12 Plt Count 316 K/uL (152-406) D 12/18/20 05:55 PT 25.3 SECONDS (9.5-12.5) H 12/16/20 14:05 INR 2.18 12/16/20 14:05 Sodium 140 mmol/L (136-145) 12/18/20 05:55 Potassium 4.2 mmol/L (3.5-5.1) 12/18/20 05:55 BUN 10 mg/dL (7-18) 12/18/20 05:55 Creatinine 0.95 mg/dL (0.55-1.3) 12/18/20 05:55 Glucose 178 mg/dL (74-106) H 12/18/20 05:55 Phosphorus 3.0 mg/dL (2.5-4.9) 12/18/20 05:55 Magnesium 1.9 mg/dL (1.8-2.4) 12/18/20 05:55 Total Bilirubin 0.4 mg/dL (0.2-1.0) 12/18/20 05:55 AST 13 U/L (15-37) L 12/18/20 05:55 ALT 9 U/L (12-78) L 12/18/20 05:55 Alkaline Phosphatase 105 U/L (45-117) 12/18/20 05:55 Triglycerides 211 mg/dL (<150) H 12/17/20 05:12 Cholesterol 130 mg/dL (<200) 12/17/20 05:12 HDL Cholesterol 29 mg/dL (40-60) L 12/17/20 05:12 Cholesterol/HDL Ratio 4.48 12/17/20 05:12 Home Medications: Apixaban [Eliquis] 5 mg PO BID 12/16/20 Buspirone HCl [Buspar] 10 mg PO TID 12/16/20 Hydrocodone 10/APAP 325 [[place] 10/325*] 1 tab PO TID 12/16/20 Prochlorperazine Maleate 10 mg PO Q6H PRN 12/16/20 Zolpidem Tartrate [Ambien Cr] 12.5 mg PO BEDTIME PRN 12/16/20 dexAMETHasone [Dexamethasone] 4 mg PO TID 12/16/20 Albuterol Neb [Proventil 0.083% Neb Soln] 2.5 mg NEB [id number] #60 amp 12/19/20 Amox/Clavulanate [Augmentin 875-125 Tab] 875 mg PO BID #14 tab 12/19/20 Escitalopram [Lexapro*] 20 mg PO DAILY #30 tab 12/19/20 Ipratropium Neb [Atrovent*] 0.5 mg NEB [id number] #60 amp 12/19/20 Levofloxacin [Levaquin] 500 mg PO DAILY #7 tablet 12/19/20 Nebulizer Accessories [Aeroneb Go] 1 each MC DAILY #1 each 12/19/20 Nebulizer [Aeroneb Go Nebulizer] 1 each MC DAILY #1 each 12/19/20 New Medications: Nebulizer Accessories [Aeroneb Go] 1 each MC DAILY #1 each Nebulizer [Aeroneb Go Nebulizer] 1 each MC DAILY #1 each Ipratropium Neb [Atrovent*] 0.5 mg NEB [id number] #60 amp Amox/Clavulanate [Augmentin 875-125 Tab] 875 mg PO BID #14 tab Levofloxacin [Levaquin] 500 mg PO DAILY #7 tablet Escitalopram [Lexapro*] 20 mg PO DAILY #30 tab Albuterol Neb [Proventil 0.083% Neb Soln] 2.5 mg NEB [id number] #60 amp Physician Discharge Instructions: OK TO DC IV AND DC HOME FOLLOW-UP WITH PRIMARY CARE PROVIDER IN 1-2 WEEKS FOLLOW-UP WITH Oncologist this week RETURN TO THE ER IF symptoms worsen CALL or TEXT DR. REYNOSO AT [phone] IF ANY QUESTIONS REGARDING HOSPITAL STAY. PLEASE CALL THE FLOOR AT [phone] IF ANY MEDICATION OR NURSING QUESTIONS. Diet: AHA Activity: Fall precautions Followup: RANJIT NAYAK [Primary Care Provider] -
[2020-12-19 13:03] LABS: Absolute Lymphocytes (CBC) 0.7 K/uL (0.7-4.9); Basophils % 0.1 % (0-1.3); Hematocrit 30.5 % (39.6-49.0); Lymphocytes % 4.1 % (15.3-44.8); MPV 6.4 fL (7.6-11.3); RBC Red Blood Cell Count 3.86 M/uL (4.33-5.43)
[2020-12-19 13:19] LABS: BUN Blood Urea Nitrogen 16 mg/dL (7-18); Bicarbonate 27 mmol/L (21-32); Glucose Level 121 mg/dL (74-106); Magnesium 1.8 mg/dL (1.8-2.4); Phosphorus 3.3 mg/dL (2.5-4.9); Potassium 4.3 mmol/L (3.5-5.1); Sodium Level 137 mmol/L (136-145)
[2020-12-19 13:54] LABS: Blood Morphology Comment NOT SEEN (NOT SEEN); Platelet Estimate ADEQ; White Blood Cell Scan OK (OK)
[2020-12-19 15:13] VITALS: O2SAT 95
== END 2020-12-19 15:29 | disposition home or self-care (01) | DRG 194 ==
LOC: ER 12:56 → ERHOLD 17:48 → 2ND 19:35
PROVIDERS: ADMIT Hospitalist; ATTEND Hospitalist
PROC: 30233N1 Transfusion of Nonautologous Red Blood Cells into Peripheral Vein, Percutaneous Approach (ICD-10-PCS; principal; 2020-12-18)
DX: J18.9 Pneumonia, unspecified organism (principal); C34.12 Malignant neoplasm of upper lobe, left bronchus or lung; C78.7 Secondary malignant neoplasm of liver and intrahepatic bile duct; N28.9 Disorder of kidney and ureter, unspecified; Z79.01 Long term (current) use of anticoagulants; Z79.899 Other long term (current) drug therapy; Z85.841 Personal history of malignant neoplasm of brain; Z87.891 Personal history of nicotine dependence; Z20.822 Contact with and (suspected) exposure to COVID-19
CPT/HCPCS: 0240U; 36415; 36430; 71045; 71260; 80048; 80053; 80061; 80076; 81001; 83605; 83735; 83880; 84100; 84132; 84145; 84484; 85014; 85018; 85025; 85610; 86850; 86900; 86901; 87040; 87086; 87088; 93005; 94760; 96374; 96375; 99285; J0456; J0696; J1170; J1650; J2405; J2543; J7030; J7050; J8540; P9016; Q0164; Q9967

== ENCOUNTER 2020-12-21 09:11 | Observation (INO) | payer OTHER ==
[2020-12-21] MEDS ORDERED: ONDANSETRON 4 MG/2 ML VIAL ONE (10:20)
[2020-12-21] MEDS ORDERED: FAMOTIDINE 20 MG/2 ML VIAL IV ONE (10:20)
[2020-12-21 10:47] LABS: Protime INR 2.05
[2020-12-21 10:48] LABS: Absolute Lymphocytes (CBC) 0.7 K/uL (0.7-4.9); Basophils % 0.1 % (0-1.3); Hematocrit 35.4 % (39.6-49.0); Lymphocytes % 4.4 % (15.3-44.8); MPV 6.5 fL (7.6-11.3); RBC Red Blood Cell Count 4.42 M/uL (4.33-5.43)
[2020-12-21 11:00] LABS: Albumin 1.6 g/dL (3.4-5.0); Bilirubin Direct 0.4 mg/dL (0-0.2); Bilirubin Total 0.8 mg/dL (0.2-1.0); Potassium 4.1 mmol/L (3.5-5.1); Protein, Total 7.3 g/dL (6.4-8.2)
[2020-12-21 11:41] LABS: Anisocytosis 1+; Blood Morphology Comment NOTED (NOT SEEN); Platelet Estimate ADEQ; White Blood Cell Scan OK (OK)
[2020-12-21] MEDS ORDERED: MORPHINE 2 MG/ML SYR IV PRN (13:25)
[2020-12-21] MEDS ORDERED: ONDANSETRON 4 MG/2 ML VIAL IV PRN (13:25)
[2020-12-21] MEDS ORDERED: ACETAMINOPHEN 500 MG TAB PO PRN (13:25)
--- NOTE | 2020-12-21 13:42 | P.HP ---
Certification for Inpatient Patient admitted to: Observation With expected LOS: <2 Midnights Practitioner: I am a practitioner with admitting privileges, knowledge of patient current condition, hospital course, and medical plan of care. Services: Services provided to patient in accordance with Admission requirements found in Title 42 Section 412.3 of the Code of Federal Regulations Patient History Date of Service: 12/22/20 Reason for admission: Nausea and weakness History of Present Illness: Patient is 60 years of age has history of lung cancer with the metastasis to brain uses recently discharged from the hospital he was doing well when home became weak not eating and drinking end appear back in the hospital able to take care of himself was admitted with possible pneumonia sent home on some antibiotics Allergies No Known Allergies Allergy (Verified 12/21/20 20:27) Home Medications: Apixaban [Eliquis] 5 mg PO BID 12/16/20 Buspirone HCl [Buspar] 10 mg PO TID 12/16/20 Hydrocodone 10/APAP 325 [[place] 10/325*] 1 tab PO TID 12/16/20 Prochlorperazine Maleate 10 mg PO Q6H PRN 12/16/20 Zolpidem Tartrate [Ambien Cr] 12.5 mg PO BEDTIME PRN 12/16/20 dexAMETHasone [Dexamethasone] 4 mg PO TID 12/16/20 Amox/Clavulanate [Augmentin 875-125 Tab] 875 mg PO BID #14 tab 12/19/20 Escitalopram [Lexapro*] 20 mg PO DAILY #30 tab 12/19/20 Levofloxacin [Levaquin] 500 mg PO DAILY #7 tablet 12/19/20 Albuterol Sulfate [Proair Hfa] 2 puff IH BID PRN 12/21/20 Budesonide/Formoterol Fumarate [Symbicort 80-4.5 Mcg Inhaler] 2 puff IH DAILY 12/21/20 Cetirizine HCl 1 tab PO DAILY 12/21/20 Ibuprofen 1 tab PO BIDP PRN 12/21/20 Melatonin/Pyridoxine [Melatonin 5 mg Tablet] 1 tab PO BEDTIME 12/21/20 Tamsulosin HCl 1 cap PO DAILY 12/21/20 - Past Medical/Surgical History Diabetic: No -: brain Ca -: liver Ca -: lung Ca - Family History Parents Notes: pt has no information on medical hx of biological parents. pt says he is adopted - Social History Alcohol use: No CD- Drugs: Yes Caffeine use: Yes Review of Systems General: Weakness Respiratory: Shortness of Breath Integumentary: As per HPI (Patient has expressive dysphagia) Physical Examination - Vital Signs Temperature: 97.4 F Blood Pressure: 115/80 Pulse: 105 Respirations: 18 Pulse Ox (%): 97 - Physical Exam General: Alert, Cachectic, Other (Expressive dysphagia) HEENT: PERRLA Respiratory: Clear to auscultation bilaterally, Diminished Cardiovascular: No edema, Normal S1 S2 Gastrointestinal: Normal bowel sounds, Soft and benign Musculoskeletal: No clubbing, No swelling - Studies Laboratory Data (last 24 hrs) 12/21/20 10:20: PT 23.7 H, INR 2.05 12/21/20 10:20: WBC 17.00 H, Hgb 11.2 L, Hct 35.4 L D, Plt Count 369 12/21/20 10:20: Sodium 138, Potassium 4.1, BUN 17, Creatinine 0.99, Glucose 97, Total Bilirubin 0.8, AST 35, ALT 17, Alkaline Phosphatase 118 H, Lipase 150 Assessment and Plan - Problems (Diagnosis) (1) Nausea Current Visit: Yes Status: Acute Plan: Patient is 60 years of age metastatic cancer of the lung mets to the liver and the brain stage IV lung cancer IV just recently discharged admitted with nausea weakness in able to take care of itself white count mildly elevated chest x-rays shows very large left-sided lung mass with atelectasis CT of the abdomen done will admit to the fluoro start on IV fluids is no evidence of an infection prognosis poor agree with hospice care he has already had some treatment including radiation to the brain room-air saturation is borderline - Advance Directives Does patient have a Living Will: No Does patient have a Durable POA for Healthcare: No
--- NOTE | 2020-12-21 13:50 | ER ---
Nurse's Notes [facility] Name: Tylor Delgadillo Age: 60 yrs Sex: Male : 1960 Arrival Date: 12/21/2020 Time: 09:13 Bed 15 Private MD: Diagnosis: Weakness;Nausea and vomiting;Diarrhea, unspecified Presentation: 12/21 09:31 Chief complaint: Patient states: feels like he can't breathe, has a stomach ache, was iw just d/c yesterday, he fell about lorena hour ago, slipped off steps and hit his right hand. Coronavirus screen: difficulty breathing, Client presents with at least one sign or symptom that may indicate coronavirus-19. Ebola Screen: Patient negative for fever greater than or equal to 101.5 degrees Fahrenheit, and additional compatible Ebola Virus Disease symptoms Patient denies exposure to infectious person. Patient denies travel to an Ebola-affected area in the 21 days before illness onset. No symptoms or risks identified at this time. Initial Sepsis Screen: Does the patient meet any 2 criteria? No. Patient's initial sepsis screen is negative. Does the patient have a suspected source of infection? No. Patient's initial sepsis screen is negative. Risk Assessment: Do you want to hurt yourself or someone else? Patient reports no desire to harm self or others. Onset of symptoms was December 21, 2020. 09:31 Method Of Arrival: Wheelchair iw 09:31 Acuity: RODRIGO 3 iw Triage Assessment: 09:48 Respiratory: Reports shortness of breath at rest Onset: The symptoms/episode jd3 began/occurred gradually, the patient has mild shortness of breath. Historical: - Allergies: :33 No Known Allergies; iw - Home Meds: :33 Eliquis 5 mg Oral tab 1 tab 2 times per day [Active]; iw - PMHx: :33 Cancer; BRAIN; LIVER CA; Lung CA; iw - PSHx: :33 None; iw - Immunization history:: Adult Immunizations not up to date. - Social history:: Smoking status: Patient/guardian denies using tobacco, Stopped _ months ago 8. Screenin:48 Abuse screen: Denies threats or abuse. Nutritional screening: No deficits noted. jd3 Tuberculosis screening: No symptoms or risk factors identified. Fall Risk Ambulatory Aid- None/Bed Rest/Nurse Assist (0 pts). Gait- Normal/Bed Rest/Wheelchair (0 pts) Mental Status- Oriented to own ability (0 pts). Total Long Fall Scale indicates No Risk (0-24 pts). Assessment: 09:42 General: Appears in no apparent distress. comfortable, Behavior is calm, cooperative, jd3 appropriate for age. Pain: Complains of pain in chest Quality of pain is described as aching. Neuro: Level of Consciousness is awake, alert, obeys commands, Oriented to person, place, time, situation. Cardiovascular: Heart tones S1 S2 present Capillary refill < 3 seconds Patient's skin is warm and dry. Respiratory: Reports shortness of breath at rest Airway is patent Respiratory effort is even, unlabored, Respiratory pattern is regular, symmetrical, Breath sounds are clear bilaterally. GI: No signs and/or symptoms were reported involving the gastrointestinal system. : No signs and/or symptoms were reported regarding the genitourinary system. EENT: No signs and/or symptoms were reported regarding the EENT system. Derm: Skin is intact, Skin is dry, Skin is normal, Skin temperature is warm. Musculoskeletal: Circulation, motion, and sensation intact. Range of motion: intact in all extremities. 12:30 General: Appears in no apparent distress. comfortable, Behavior is calm, cooperative, zb appropriate for age. Pain: Complains of pain in chest Quality of pain is described as aching. Neuro: Level of Consciousness is awake, alert, obeys commands, Oriented to person, place, time, situation. Cardiovascular: Heart tones S1 S2 present Capillary refill < 3 seconds Patient's skin is warm and dry. Respiratory: Reports shortness of breath at rest Airway is patent Respiratory effort is even, unlabored, Respiratory pattern is regular, symmetrical, Breath sounds are clear bilaterally. GI: No signs and/or symptoms were reported involving the gastrointestinal system. : No signs and/or symptoms were reported regarding the genitourinary system. EENT: No signs and/or symptoms were reported regarding the EENT system. Derm: Skin is intact, Skin is dry, Skin is normal, Skin temperature is warm. Musculoskeletal: Circulation, motion, and sensation intact. Range of motion: intact in all extremities. 13:06 Reassessment: Patient appears in no apparent distress at this time. Patient and/or zb family updated on plan of care and expected duration. Pain level reassessed. Patient is alert, oriented x 3, equal unlabored respirations, skin warm/dry/pink. Hospitalist at bedside. 14:06 Reassessment: Patient appears in no apparent distress at this time. Patient and/or zb family updated on plan of care and expected duration. Pain level reassessed. Patient is alert, oriented x 3, equal unlabored respirations, skin warm/dry/pink. 15:06 Reassessment: Patient appears in no apparent distress at this time. Patient and/or zb family updated on plan of care and expected duration. Pain level reassessed. Patient is alert, oriented x 3, equal unlabored respirations, skin warm/dry/pink. 16:06 Reassessment: Patient appears in no apparent distress at this time. Patient and/or zb family updated on plan of care and expected duration. Pain level reassessed. Patient is alert, oriented x 3, equal unlabored respirations, skin warm/dry/pink. pt repositioned. 17:06 Reassessment: Patient appears in no apparent distress at this time. Patient and/or zb family updated on plan of care and expected duration. Pain level reassessed. Patient is alert, oriented x 3, equal unlabored respirations, skin warm/dry/pink. pt c/o of pain. given medication per Consumer Agent Portal (CAP). 18:06 Reassessment: Patient appears in no apparent distress at this time. Patient and/or zb family updated on plan of care and expected duration. Pain level reassessed. Patient is alert, oriented x 3, equal unlabored respirations, skin warm/dry/pink. pt currently asleep. no c/o at this time. 19:49 Reassessment: Patient appears in no apparent distress at this time. Patient and/or zb family updated on plan of care and expected duration. Pain level reassessed. Patient is alert, oriented x 3, equal unlabored respirations, skin warm/dry/pink. pt awaiting room. Vital Signs: 09:31 BP 115 / 81; Pulse 105; Resp 18 S; Temp 97.4; Pulse Ox 97% on R/A; Weight 81.65 kg; iw Height 6 ft. 0 in. (182.88 cm); 11:17 BP 124 / 79; Pulse 91; Resp 18 S; Pulse Ox 95% on R/A; jd3 12:00 BP 112 / 76; Pulse 91; Resp 16; Pulse Ox 95% on R/A; zb 13:00 BP 106 / 63; Pulse 91; Resp 16; Pulse Ox 94% on R/A; zb 14:00 BP 102 / 70; Pulse 101; Resp 18; Pulse Ox 95% on R/A; zb 15:00 BP 97 / 78; Pulse 88; Resp 20; Pulse Ox 96% on R/A; zb 16:00 BP 131 / 79; Pulse 99; Resp 16; Pulse Ox 94% on R/A; zb 17:00 BP 113 / 86; Pulse 94; Resp 18; Pulse Ox 93% on R/A; zb 18:00 BP 106 / 70; Pulse 65; Resp 18; Pulse Ox 93% on R/A; zb 18:30 BP 124 / 90; Pulse 88; Resp 18; Pulse Ox 93% on R/A; zb 09:31 Body Mass Index 24.41 (81.65 kg, 182.88 cm) iw ED Course: 09:13 Patient arrived in ED. rg4 09:32 Triage completed. iw 09:33 Arm band placed on. iw 09:36 Fritz Jeff, GEO is Primary Nurse. jd3 09:45 Patient has correct armband on for positive identification. Bed in low position. Call jd3 light in reach. Side rails up X 1. synthetic chemist on. Pulse ox on. NIBP on. 09:51 Gregg Samuel PA is PHCP. cp 09:51 Gregg Villalobos MD is Attending Physician. cp 10:30 Inserted saline lock: 22 gauge in left antecubital area, using aseptic technique. Blood jd3 collected. 10:32 XRAY Hand RIGHT 3 View In Process Unspecified. EDMS 10:32 XRAY Chest (1 view) In Process Unspecified. EDMS 10:53 CT Abd/Pelvis - IV Contrast Only In Process Unspecified. EDMS 13:49 Joe Duarte MD is Hospitalizing Provider. cp 18:47 No provider procedures requiring assistance completed. Patient admitted, IV remains in zb place. Administered Medications: 10:35 Drug: Zofran (Ondansetron) 4 mg Route: IVP; Site: left antecubital; jd3 13:24 Follow up: Response: No adverse reaction; Marked relief of symptoms; Nausea is decreasedzb 10:35 Drug: Pepcid 20 mg Route: IVP; Site: left antecubital; jd3 13:24 Follow up: Response: No adverse reaction zb Outcome: 13:49 Decision to Hospitalize by Provider. cp 18:47 Admitted to Med/surg room 225. zb 18:47 Condition: stable 18:47 Instructed on the need for admit. 20:06 Patient left the ED. zb Signatures: Dispatcher [employer] Priya Her RN Gregg Freeman PA PA cp Garcia, Rubi rg4 Fritz Jeff RN RN jd3 Brown, Zipporah, RN RN zbárbara Corrections: (The following items were deleted from the chart) 09:48 09:42 Cardiovascular: Heart tones S1 S2 present Capillary refill < 3 seconds Patient's jd3 skin is warm and dry. jd3 09:48 09:42 Respiratory: Airway is patent Respiratory effort is even, unlabored, Respiratory jd3 pattern is regular, symmetrical, jd3
--- NOTE | 2020-12-21 13:50 | EDPHYS ---
Physician Documentation [facility] Name: Tylor Delgadillo Age: 60 yrs Sex: Male : 1960 Arrival Date: 12/21/2020 Time: 09:13 Bed 15 Private MD: Gregg Laboy HPI: 12/21 10:05 This 60 yrs old Male presents to ER via Wheelchair with complaints of cp Breathing Difficulty, Cough, Fall Injury. 10:05 The patient presents with abdominal pain. Associated signs and symptoms: Pertinent cp positives: nausea, vomiting, diarrhea. 10:05 Onset: The symptoms/episode began/occurred 1 hour(s) ago. cp 10:05 The patient has shortness of breath at rest. cp Historical: - Allergies: :33 No Known Allergies; iw - Home Meds: :33 Eliquis 5 mg Oral tab 1 tab 2 times per day [Active]; iw - PMHx: 09:33 Cancer; BRAIN; LIVER CA; Lung CA; iw - PSHx: :33 None; iw - Immunization history:: Adult Immunizations not up to date. - Social history:: Smoking status: Patient/guardian denies using tobacco, Stopped _ months ago 8. ROS: 10:10 Constitutional: Negative for body aches, chills, fever. cp 10:10 Cardiovascular: Negative for chest pain, edema. cp 10:10 Respiratory: Positive for cough, shortness of breath, Negative for wheezing. 10:10 Abdomen/GI: Positive for abdominal pain, nausea and vomiting, diarrhea, Negative for constipation, black/tarry stool, rectal bleeding. 10:10 Neuro: Positive for general weakness, Negative for altered mental status, headache, cp loss of consciousness, syncope. 10:10 Skin: Positive for abrasion(s), of the right hand, Negative for rash. cp 10:10 All other systems are negative. Exam: 10:15 Constitutional: The patient appears in no acute distress, alert, awake, cp non-diaphoretic, non-toxic, well developed, well nourished. 10:15 Head/Face: Normocephalic, atraumatic. cp 10:15 Eyes: Periorbital structures: appear normal, Pupils: equal, round, and reactive to light and accomodation, Extraocular movements: intact throughout, Conjunctiva: normal, no exudate, no injection, Sclera: no appreciated abnormality, Lids and lashes: appear normal, bilaterally. 10:15 ENT: External ear(s): are unremarkable, Nose: is normal, Mouth: Lips: moist, Oral mucosa: moist, Posterior pharynx: Airway: no evidence of obstruction, patent. 10:15 Neck: ROM/movement: is normal, is supple, without pain, no range of motions limitations. 10:15 Chest/axilla: Inspection: normal, Palpation: is normal, no crepitus, no tenderness. 10:15 Cardiovascular: Rate: tachycardic, Rhythm: regular, Edema: is not appreciated, JVD: is not appreciated. 10:15 Respiratory: the patient does not display signs of respiratory distress, Respirations: normal, no use of accessory muscles, no retractions, labored breathing, is not present, Breath sounds: are clear throughout, no decreased breath sounds, no stridor, no wheezing. 10:15 Abdomen/GI: Inspection: abdomen appears normal, Bowel sounds: active, all quadrants, Palpation: soft, in all quadrants, moderate abdominal tenderness, in the right upper quadrant, right lower quadrant and left lower quadrant, rebound tenderness, is not appreciated, involuntary guarding, is not appreciated. 10:15 Back: pain, is absent, ROM is normal. 10:15 Neuro: Orientation: to person, place \\T\\ time. Mentation: is normal, Cerebellar function: Motor: moves all fours, general weakness with no focal deficits, Sensation: is normal. Vital Signs: 09:31 BP 115 / 81; Pulse 105; Resp 18 S; Temp 97.4; Pulse Ox 97% on R/A; Weight 81.65 kg; iw Height 6 ft. 0 in. (182.88 cm); 11:17 BP 124 / 79; Pulse 91; Resp 18 S; Pulse Ox 95% on R/A; jd3 12:00 BP 112 / 76; Pulse 91; Resp 16; Pulse Ox 95% on R/A; zb 13:00 BP 106 / 63; Pulse 91; Resp 16; Pulse Ox 94% on R/A; zb 14:00 BP 102 / 70; Pulse 101; Resp 18; Pulse Ox 95% on R/A; zb 15:00 BP 97 / 78; Pulse 88; Resp 20; Pulse Ox 96% on R/A; zb 16:00 BP 131 / 79; Pulse 99; Resp 16; Pulse Ox 94% on R/A; zb 17:00 BP 113 / 86; Pulse 94; Resp 18; Pulse Ox 93% on R/A; zb 18:00 BP 106 / 70; Pulse 65; Resp 18; Pulse Ox 93% on R/A; zb 18:30 BP 124 / 90; Pulse 88; Resp 18; Pulse Ox 93% on R/A; zb 09:31 Body Mass Index 24.41 (81.65 kg, 182.88 cm) iw MDM: 09:51 Patient medically screened. patricia 10:30 Differential diagnosis: Myocardial Infarction pneumonia, Sepsis Unstable Angina bowel cp obstruction. 12:49 Data reviewed: vital signs, nurses notes, lab test result(s), radiologic studies, CT cp scan, plain films, I have discussed the patient's presentation/case with the attending Emergency Department Physician;. Physician consultation: Joe Duatre MD was called at 12:49, was contacted at 12:49, regarding patient's condition, and will see patient in ED, shortly. 12/21 10:01 Order name: Basic Metabolic Panel 12/21 10:01 Order name: CBC with Diff 12/21 10:01 Order name: Hepatic Function 12/21 10:01 Order name: Lipase cp 12/21 10:01 Order name: PT-INR cp 12/21 10:02 Order name: Basic Metabolic Panel; Complete Time: 11:01 EDMS 12/21 11:01 Interpretation: Normal except: GFR 77. 12/21 10:02 Order name: CBC with Automated Diff; Complete Time: 11:44 EDMS 12/21 11:01 Interpretation: Normal except: WBC 17.00; HGB 11.2; HCT 35.4; MCH 25.2; MCHC 31.5; RDW cp 20.7; MPV 6.5; GETACHEW% 91.2; LYM% 4.4; NEUT A 15.5. 12/21 10:02 Order name: Liver (Hepatic) Function; Complete Time: 11:01 EDMS 12/21 11:01 Interpretation: Normal except: ALK 118; BILID 0.4; ALB 1.6; GLOB 5.7; A/G 0.3. cp 12/21 10:02 Order name: Lipase; Complete Time: 11:01 [facility] 12/21 10:02 Order name: Protime (+INR); Complete Time: 11:01 [facility] 12/21 11:45 Interpretation: Reviewed. 12/21 11:41 Order name: CBC Smear Scan; Complete Time: 11:44 EDWA 12/21 13:27 Order name: CBC with Automated Diff [facility] 12/21 10:01 Order name: XRAY Hand RIGHT 3 View 12/21 10:01 Order name: IV Saline Lock; Complete Time: 10:35 12/21 10:01 Order name: Labs collected and sent; Complete Time: 10:35 12/21 10:01 Order name: XRAY Chest (1 view) 12/21 10:01 Order name: Urine Dipstick-Ancillary (obtain specimen); Complete Time: 15:48 12/21 10:25 Order name: CT Abd/Pelvis - IV Contrast Only 12/21 12:14 Order name: PO challenge; Complete Time: 13:24 12/21 13:27 Order name: CONS Pharmacy Consult [facility] 12/21 13:27 Order name: Regular EDWA 12/21 13:27 Order name: Comprehensive Metabolic Panel [facility] 12/21 16:26 Order name: COVID-19 : Document "Date of Symptom Onset" if Symptomatic. 12/21 17:12 Order name: CORONAVIRUS [facility] 12/21 17:54 Order name: SARS-COV-2 RT PCR EDMS Administered Medications: 10:35 Drug: Zofran (Ondansetron) 4 mg Route: IVP; Site: left antecubital; jd3 13:24 Follow up: Response: No adverse reaction; Marked relief of symptoms; Nausea is decreasedzb 10:35 Drug: Pepcid 20 mg Route: IVP; Site: left antecubital; jd3 13:24 Follow up: Response: No adverse reaction zb Disposition: 14:00 Chart complete. cp Disposition: 12/21/20 13:49 Hospitalization ordered by Joe Duarte for Observation. Preliminary diagnosis are Weakness, Nausea and vomiting, Diarrhea, unspecified. - Bed requested for Telemetry/MedSurg (observation). - Status is Observation. zb - Condition is Stable. - Problem is new. - Symptoms have improved. Addendum: 12/23/2020 06:59 Co-signature as Attending Physician, Gregg Villalobos MD I agree with the assessment and c avila plan of care. Signatures: Dispatcher [employer] [facility] Gregg Villalobos MD MD cha Williams, Irene, RN RN iw Gregg Samuel, PA PA Fritz Durham, RN RN jAngie Hager RN RN zb Corrections: (The following items were deleted from the chart) 12/21 11:49 11:46 Ammonia ordered. [facility] 18:02 13:49 Hospitalization Ordered by Joe Duarte MD for Observation. Preliminary iw diagnosis is Weakness; Nausea and vomiting; Diarrhea, unspecified. Bed requested for Telemetry/MedSurg (observation). Status is Observation. Condition is Stable. Problem is new. Symptoms have improved. cp 18:30 18:02 12/21/2020 13:49 Hospitalization Ordered by Joe Duarte MD for Observation. iw Preliminary diagnosis is Weakness; Nausea and vomiting; Diarrhea, unspecified. [facility]. Status is Observation. Condition is Stable. Problem is new. Symptoms have improved. iw 20:06 18:30 12/21/2020 13:49 Hospitalization Ordered by Joe Duarte MD for Observation. zb Preliminary diagnosis is Weakness; Nausea and vomiting; Diarrhea, unspecified. Bed requested for Telemetry/MedSurg (observation). Status is Observation. Condition is Stable. Problem is new. Symptoms have improved. iw
[2020-12-21] MEDS ORDERED: MORPHINE 2 MG/ML SYR ONE (16:54)
[2020-12-21] MEDS: D5 0.45 NS 1,000 ML IV SCH (20:55)
[2020-12-21] MEDS ORDERED: HYDROCODONE/APAP 10/325 TAB PO PRN (21:31)
--- NOTE | 2020-12-21 22:36 | RAD REPORT ---
EXAM DESCRIPTION: Jaciel Single View12/21/2020 10:32 am CLINICAL HISTORY: Cough COMPARISON: December 18, 2020 FINDINGS: Large left lung mass with elevation of the left hemidiaphragm unchanged. Mild bibasilar lung opacities unchanged. Heart is normal size. A central venous line remains in place
[2020-12-21] MEDS ORDERED: HYDROCODONE/APAP 10/325 TAB ONE (22:46)
[2020-12-22 01:24] VITALS: BMI 17.4
[2020-12-22 05:53] LABS: Absolute Lymphocytes (CBC) 0.9 K/uL (0.7-4.9); Basophils % 0.1 % (0-1.3); Hematocrit 31.9 % (39.6-49.0); Lymphocytes % 7.2 % (15.3-44.8); MPV 6.3 fL (7.6-11.3)
[2020-12-22] MEDS: D5 0.45 NS 1,000 ML IV SCH ×2 (06:10)
[2020-12-22 06:11] LABS: Albumin 1.5 g/dL (3.4-5.0); Bilirubin Total 0.7 mg/dL (0.2-1.0); Potassium 3.5 mmol/L (3.5-5.1); Protein, Total 6.5 g/dL (6.4-8.2)
[2020-12-22 07:28] LABS: Platelet Estimate ADEQ; White Blood Cell Scan OK (OK)
[2020-12-22 07:29] LABS: Anisocytosis 1+; Blood Morphology Comment NOTED (NOT SEEN)
[2020-12-22] MEDS ORDERED: ZOLPIDEM TARTRATE 10 MG TABLET PO PRN (09:03)
--- NOTE | 2020-12-22 09:12 | P.PN ---
Subjective Date of Service: 12/22/20 Primary Care Provider: Janice Soriano NP Chief Complaint: Poor oral intake Subjective: Other (Patient alert. Patient in no acute distress. No significant nausea vomiting noted.) Physical Examination - Vital Signs Temperature: 98.0 F Blood Pressure: 96/67 Pulse: 83 Respirations: 18 Pulse Ox (%): 93 - Physical Exam General: Alert, Cooperative HEENT: Atraumatic Neck: Supple Respiratory: Clear to auscultation bilaterally, Normal air movement Cardiovascular: Normal pulses, Regular rate/rhythm Gastrointestinal: Normal bowel sounds, Soft and benign, Non-distended, No masses, No rebound, No guarding Neurological: Normal speech, Normal strength at 5/5 x4 extr, Normal tone, Normal affect - Studies Laboratory Data (last 24 hrs) 12/21/20 10:20: PT 23.7 H, INR 2.05 12/21/20 10:20: WBC 17.00 H, Hgb 11.2 L, Hct 35.4 L D, Plt Count 369 12/21/20 10:20: Sodium 138, Potassium 4.1, BUN 17, Creatinine 0.99, Glucose 97, Total Bilirubin 0.8, AST 35, ALT 17, Alkaline Phosphatase 118 H, Lipase 150 Medications List Reviewed: Yes Assessment & Plan Discharge Plan: Home (With hospice) Plan to discharge in: 24 Hours Physician Review Additional Text: Impression: Nausea, vomiting with poor oral intake complicated with stage IV lung cancer with metastasis to the liver, adrenal gland and intracranial metastasis Recent hospitalization for post obstructive pneumonia COPD BPH On chronic anti coagulation therapy Depression Plan: Nausea, vomiting with poor oral intake complicated with stage IV lung cancer with metastasis to the liver, adrenal gland and intracranial metastasis: Patient appears to be at his baseline. No significant nausea vomiting. Discontinue IV fluids. Plan of care addressed with the patient in detail. Advanced directives also address in detail. Patient understands that he is stage IV lung cancer with metastasis to multiple areas. Based on recent CT scan no significant improvement noted. In fact interval progression seen with mild increase in size of left upper lobe mass, mediastinal lymph nodes and probable increase in size of hepatic metastasis noted. Right adrenal mass also developed currently measuring 12 mm. After further discussion patient is do not resuscitate. Plan of care including hospice at home address in detail with the patient. Patient understands this is probably the best option for him. Will have social media strategist discuss this in detail. Anticipate discharge with home hospice within the next 24 hr. Recent hospitalization for post obstructive pneumonia: Continue with antibiotic therapy. Patient on room-air saturation at normal range. COPD: Continue COPD treatment. BPH: Continue Flomax On chronic anti coagulation therapy: Continue Eliquis. Depression: Continue with his medication Time Spent Managing Pts Care (In Minutes): 55
[2020-12-22] MEDS: dexAMETHasone 4 MG TAB PO SCH ×2 (13:39→20:46)
[2020-12-22] MEDS: BUSPIRONE HCL 5 MG TABLET PO SCH ×2 (13:39→20:46)
[2020-12-22] MEDS: HYDROCODONE/APAP 10/325 TAB PO SCH ×2 (13:40→20:46)
[2020-12-22] MEDS ORDERED: ENSURE ENLIVE 237 ML CAN PO SCH (14:00)
[2020-12-22] MEDS: ENSURE ENLIVE 237 ML CAN PO SCH ×2 (14:00→20:47)
--- NOTE | 2020-12-22 15:21 | RAD REPORT ---
EXAM DESCRIPTION: RAD - Hand Right 3 View - 12/21/2020 10:32 am CLINICAL HISTORY: PAIN COMPARISON: No comparisonsdelete select FINDINGS: No fracture is identified. There is no dislocation or periosteal reaction noted. IP joint space narrowing present without erosive or destructive component. Minimal joint space narrowing at t he third and fourth MCP joints. Patient has mild degenerative change at the trapezium- first metacarp al articulation. Soft tissue injury is seen over the dorsum of the hand with no retained foreign body. IMPRESSION: Degenerative change with no acute bony or joint abnormality. Dorsum soft tissue injury without foreign body.
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
--- NOTE | 2020-12-22 16:30 | P.DS ---
Admission Date: 12/21/20 Discharge Date: 12/22/20 Disposition: ROUTINE DISCHARGE Discharge Condition: GOOD Reason for Admission: Nausea and weakness Consultations: Impression: Nausea, vomiting with poor oral intake complicated with stage IV lung cancer with metastasis to the liver, adrenal gland and intracranial metastasis Recent hospitalization for post obstructive pneumonia COPD BPH On chronic anti coagulation therapy Depression Plan: Nausea, vomiting with poor oral intake complicated with stage IV lung cancer with metastasis to the liver, adrenal gland and intracranial metastasis: Patient appears to be at his baseline. No significant nausea vomiting. Discontinue IV fluids. Plan of care addressed with the patient in detail. Advanced directives also address in detail. Patient understands that he is stage IV lung cancer with metastasis to multiple areas. Based on recent CT scan no significant improvement noted. In fact interval progression seen with mild increase in size of left upper lobe mass, mediastinal lymph nodes and probable increase in size of hepatic metastasis noted. Right adrenal mass also developed currently measuring 12 mm. After further discussion patient is do not resuscitate. Plan of care including hospice at home address in detail with the patient. Patient understands this is probably the best option for him. Will have social psychologist discuss this in detail. Anticipate discharge with home hospice within the next 24 hr. Recent hospitalization for post obstructive pneumonia: Continue with antibiotic therapy. Patient on room-air saturation at normal range. COPD: Continue COPD treatment. BPH: Continue Flomax On chronic anti coagulation therapy: Continue Eliquis. Depression: Continue with his medication Time Spent Managing Pts Care (In Minutes): 55 Procedures: COVID: Negative CT scan: FINDINGS: Left hemidiaphragm elevation is present. Trace amount of pleural fluid noted on the left. Patchy lung parenchymal opacification present probably chronic. The patient's known left lung mass falls outside of the field of view of this examination. The liver is grossly abnormal. Patient has known metastatic disease to the liver. In segment IV (image 20) there is a 2.3 cm AP x 2.6 cm TR mass previously measuring 1.9 x 1.8 cm. In segment VIII (image number 22) there is a 2.7 cm AP x 2.7 cm TR lesion previously measuring 2.5 x 2.4 cm. At the medial margin of this lesion is an additional metastatic lesion that is increased slightly. In segment V (image 33) there is a 1.9 cm AP x 2.2 cm TR new lesion. Multiple additional new lesions are seen in the inferior right lobe. No portal vein thrombus. Spleen and pancreas show no acute findings. No gallbladder or biliary tree abnormality seen. Symmetric renal function is seen with no hydronephrosis or suspicious renal mass. No pyelonephritis or acute parenchymal process. No bladder abnormalities. Minimal adrenal nodularity has not changed. No stomach or small bowel abnormality. Cecum through descending colon show no acute findings. Patient has prominent sigmoid diverticulosis with prominent distending stool volume in the rectum and sigmoid colon. In the distal sigmoid there is mild circumferential wall thickening present. Large amount of stool distends the cecum immediately proximal to this focal area. No active edema or stranding in the adjacent fat. This is probably the sequela of the diverticulosis rather than colon mass. No free air, free fluid or inflammatory stranding. No other mass or bulky lymphadenopathy. No omental thickening. Small fat only inguinal hernias are present. No suspicious bony findings. Mild infrarenal abdominal aortic aneurysm with irregular wall plaquing changes. No centrally displaced calcifications. A 2.6 x 2.6 centimeter maximum diameter noted. IMPRESSION: Progressive metastatic disease in the liver when compared with October 2020. Representational lesion measurements detailed in the body of the report. No ascites, omental thickening, bulky lymphadenopathy or other findings of carcinomatosis. Patient has prominent sigmoid diverticulosis. There is a mild circumferential wall thickening in the distal sigmoid colon with large amount of stool distending the colon immediately proximal to this focus. This has an appearance more typical for the chronic sequela of diverticulosis rather than a colon mass. This can be monitored and followed as warranted. Medical Problem List: Nausea, vomiting with poor oral intake complicated with stage IV lung cancer with metastasis to the liver, adrenal gland and intracranial metastasis Recent hospitalization for post obstructive pneumonia COPD BPH On chronic anti coagulation therapy Depression History of infrarenal abdominal aortic aneurysm 2.6 x 2.6 cm Brief History of Present Illness: 60-year-old male with stage IV lung cancer with mets to the brain, liver and adrenal gland. Patient presented with nausea vomiting and poor oral intake. Patient was admitted for further evaluation. Hospital Course: Patient presented with nausea, vomiting and poor oral intake. This was complicated with stage IV lung cancer with metastasis to the liver, adrenal gland and intracranial region. Patient was given IV fluids. Nausea vomiting resolved. Advanced care planning address in detail with the patient. After extensive review of prior CT scan there appears to be no improvement. In fact interval progression seen with mild increase in size of left upper lobe mass, mediastinal lymph nodes and probable increase in size of hepatic metastasis noted also developed currently measuring 12 mm. This was addressed in detail with the patient. Patient understands his prognosis is poor. He has expressed that his condition is not curable. After extensive review patient wishes to be DNR. Patient also agrees to hospice at home. Social work has arranged for this. Patient will go home with hospice in place. Continue comfort measures. Patient may continue with his current medications. Further adjustment in medic ation can be done by hospice. Patient recently hospitalized for postobstructive pneumonia. At discharge patient will continue and finish his antibiotic therapy. Patient with history of COPD, BPH, on chronic anti coagulation therapy, and depression. At discharge he will continue with his current medications. Vital Signs/Physical Exam: Temp Pulse Resp BP Pulse Ox 98.1 F 77 18 110/72 91 12/22/20 16:00 12/22/20 16:00 12/22/20 16:00 12/22/20 16:00 12/22/20 16:00 General: Alert, Cooperative Neck: Supple Respiratory: Clear to auscultation bilaterally Cardiovascular: Normal pulses, Regular rate/rhythm Gastrointestinal: No masses, No rebound, No guarding Neurological: Normal speech, Normal strength at 5/5 x4 extr, Normal tone, Normal affect Laboratory Data at Discharge: WBC 12.20 K/uL (4.3-10.9) H D 12/22/20 05:36 Hgb 10.2 g/dL (13.6-17.9) L 12/22/20 05:36 Hct 31.9 % (39.6-49.0) L 12/22/20 05:36 Plt Count 296 K/uL (152-406) 12/22/20 05:36 PT 23.7 SECONDS (9.5-12.5) H 12/21/20 10:20 INR 2.05 12/21/20 10:20 Sodium 139 mmol/L (136-145) 12/22/20 05:36 Potassium 3.5 mmol/L (3.5-5.1) 12/22/20 05:36 BUN 12 mg/dL (7-18) 12/22/20 05:36 Creatinine 0.88 mg/dL (0.55-1.3) 12/22/20 05:36 Glucose 109 mg/dL (74-106) H 12/22/20 05:36 Total Bilirubin 0.7 mg/dL (0.2-1.0) 12/22/20 05:36 AST 20 U/L (15-37) 12/22/20 05:36 ALT 13 U/L (12-78) 12/22/20 05:36 Alkaline Phosphatase 94 U/L (45-117) 12/22/20 05:36 Lipase 150 U/L (73-393) 12/21/20 10:20 Home Medications: Apixaban [Eliquis] 5 mg PO BID 12/16/20 Buspirone HCl [Buspar] 10 mg PO TID 12/16/20 Hydrocodone 10/APAP 325 [[place] 10/325*] 1 tab PO TID 12/16/20 Zolpidem Tartrate [Ambien Cr] 12.5 mg PO BEDTIME PRN 12/16/20 dexAMETHasone [Dexamethasone] 4 mg PO TID 12/16/20 Amox/Clavulanate [Augmentin 875-125 Tab*] 875 mg PO BID #14 tab 12/19/20 Escitalopram [Lexapro*] 20 mg PO DAILY #30 tab 12/19/20 Levofloxacin [Levaquin] 500 mg PO DAILY #7 tablet 12/19/20 Albuterol Sulfate [Proair Hfa] 2 puff IH BID PRN 12/21/20 Budesonide/Formoterol Fumarate [Symbicort 80-4.5 Mcg Inhaler] 2 puff IH DAILY 12/21/20 Cetirizine HCl 1 tab PO DAILY 12/21/20 Melatonin/Pyridoxine [Melatonin 5 mg Tablet] 1 tab PO BEDTIME 12/21/20 Tamsulosin HCl 1 cap PO DAILY 12/21/20 Physician Discharge Instructions: Patient to be discharge to home hospice. Patient presented with nausea, vomiting and poor oral intake. This was complicated with stage IV lung cancer with metastasis to the liver, adrenal gland and intracranial region. Patient was given IV fluids. Nausea vomiting resolved. Advanced care planning address in detail with the patient. After extensive review of prior CT scan there appears to be no improvement. In fact interval progression seen with mild increase in size of left upper lobe mass, mediastinal lymph nodes and probable increase in size of hepatic metastasis noted also developed currently measuring 12 mm. This was addressed in detail with the patient. Patient understands his prognosis is poor. He has expressed that his condition is not curable. After extensive review patient wishes to be DNR. Patient also agrees to hospice at home. Social work has arranged for this. Patient will go home with hospice in place. Continue comfort measures. Patient may continue with his current medications. Further adjustment in medication can be done by hospice. Patient recently hospitalized for postobstructive pneumonia. At discharge patient will continue and finish his antibiotic therapy. Patient with history of COPD, BPH, on chronic anti coagulation therapy, and depression. At discharge he will continue with his current medications. Diet: GI soft Activity: Fall precautions Followup: RANJIT NAYAK [Primary Care Provider] - Time spent managing pt's care (in minutes): 55
[2020-12-22] MEDS: AMOX/K CLAV 875 MG TAB PO SCH (20:46)
[2020-12-22] MEDS ORDERED: APIXABAN 5 MG TABLET PO SCH (21:00)
[2020-12-22] MEDS ORDERED: MELATONIN 5 MG TABLET PO SCH (21:00)
[2020-12-22] MEDS ORDERED: APIXABAN 5 MG TABLET ONE (22:20)
--- NOTE | 2020-12-23 08:20 | P.DS ---
Admission Date: 12/21/20 Discharge Date: 12/23/20 Primary Care Provider: Janice Nayak NP Disposition: ROUTINE DISCHARGE Discharge Condition: GOOD Reason for Admission: Nausea and weakness Consultations: Impression: Nausea, vomiting with poor oral intake complicated with stage IV lung cancer with metastasis to the liver, adrenal gland and intracranial metastasis Recent hospitalization for post obstructive pneumonia COPD BPH On chronic anti coagulation therapy Depression Plan: Nausea, vomiting with poor oral intake complicated with stage IV lung cancer with metastasis to the liver, adrenal gland and intracranial metastasis: Patient appears to be at his baseline. No significant nausea vomiting. Discontinue IV fluids. Plan of care addressed with the patient in detail. Advanced directives also address in detail. Patient understands that he is stage IV lung cancer with metastasis to multiple areas. Based on recent CT scan no significant improvement noted. In fact interval progression seen with mild increase in size of left upper lobe mass, mediastinal lymph nodes and probable increase in size of hepatic metastasis noted. Right adrenal mass also developed currently measuring 12 mm. After further discussion patient is do not resuscitate. Plan of care including hospice at home address in detail with the patient. Patient understands this is probably the best option for him. Will have social science teacher discuss this in detail. Anticipate discharge with home hospice within the next 24 hr. Recent hospitalization for post obstructive pneumonia: Continue with antibiotic therapy. Patient on room-air saturation at normal range. COPD: Continue COPD treatment. BPH: Continue Flomax On chronic anti coagulation therapy: Continue Eliquis. Depression: Continue with his medication Time Spent Managing Pts Care (In Minutes): 55 Procedures: COVID: Negative CT scan: FINDINGS: Left hemidiaphragm elevation is present. Trace amount of pleural fluid noted on the left. Patchy lung parenchymal opacification present probably chronic. The patient's known left lung mass falls outside of the field of view of this examination. The liver is grossly abnormal. Patient has known metastatic disease to the liver. In segment IV (image 20) there is a 2.3 cm AP x 2.6 cm TR mass previously measuring 1.9 x 1.8 cm. In segment VIII (image number 22) there is a 2.7 cm AP x 2.7 cm TR lesion previously measuring 2.5 x 2.4 cm. At the medial margin of this lesion is an additional metastatic lesion that is increased slightly. In segment V (image 33) there is a 1.9 cm AP x 2.2 cm TR new lesion. Multiple additional new lesions are seen in the inferior right lobe. No portal vein thrombus. Spleen and pancreas show no acute findings. No gallbladder or biliary tree abnormality seen. Symmetric renal function is seen with no hydronephrosis or suspicious renal mass. No pyelonephritis or acute parenchymal process. No bladder abnormalities. Minimal adrenal nodularity has not changed. No stomach or small bowel abnormality. Cecum through descending colon show no acute findings. Patient has prominent sigmoid diverticulosis with prominent distending stool volume in the rectum and sigmoid colon. In the distal sigmoid there is mild circumferential wall thickening present. Large amount of stool distends the cecum immediately proximal to this focal area. No active edema or stranding in the adjacent fat. This is probably the sequela of the diverticulosis rather than colon mass. No free air, free fluid or inflammatory stranding. No other mass or bulky lymphadenopathy. No omental thickening. Small fat only inguinal hernias are present. No suspicious bony findings. Mild infrarenal abdominal aortic aneurysm with irregular wall plaquing changes. No centrally displaced calcifications. A 2.6 x 2.6 centimeter maximum diameter noted. IMPRESSION: Progressive metastatic disease in the liver when compared with October 2020. Representational lesion measurements detailed in the body of the report. No ascites, omental thickening, bulky lymphadenopathy or other findings of carcinomatosis. Patient has prominent sigmoid diverticulosis. There is a mild circumferential wall thickening in the distal sigmoid colon with large amount of stool distending the colon immediately proximal to this focus. This has an appearance more typical for the chronic sequela of diverticulosis rather than a colon mass. This can be monitored and followed as warranted. Medical Problem List: Nausea, vomiting with poor oral intake complicated with stage IV lung cancer with metastasis to the liver, adrenal gland and intracranial metastasis Recent hospitalization for post obstructive pneumonia COPD BPH On chronic anti coagulation therapy Depression History of infrarenal abdominal aortic aneurysm 2.6 x 2.6 cm Brief History of Present Illness: 60-year-old male with stage IV lung cancer with mets to the brain, liver and adrenal gland. Patient presented with nausea vomiting and poor oral intake. Patient was admitted for further evaluation. Hospital Course: Patient presented with nausea, vomiting and poor oral intake. This was complicated with stage IV lung cancer with metastasis to the liver, adrenal gland and intracranial region. Patient was given IV fluids. Nausea vomiting resolved. Advanced care planning address in detail with the patient. After extensive review of prior CT scan there appears to be no improvement. In fact interval progression seen with mild increase in size of left upper lobe mass, mediastinal lymph nodes and probable increase in size of hepatic metastasis noted also developed currently measuring 12 mm. This was addressed in detail with the patient. Patient understands his prognosis is poor. He has expressed that his condition is not curable. After extensive review patient wishes to be DNR. Patient also agrees to hospice at home. Social work has arranged for this. Patient will go home with hospice in place. Continue comfort measures. Patient may continue with his current medications. Further adjustment in medication can be done by hospice. Patient recently hospitalized for postobstructive pneumonia. At discharge patient will continue and finish his antibiotic therapy. Patient with history of COPD, BPH, on chronic anti coagulation therapy, and depression. At discharge he will continue with his current medications. Vital Signs/Physical Exam: Temp Pulse Resp BP Pulse Ox 97.0 F 77 18 125/71 90 L 12/23/20 04:00 12/23/20 04:00 12/23/20 04:00 12/23/20 04:00 12/23/20 04:00 General: Alert Neck: Supple Respiratory: Clear to auscultation bilaterally, Normal air movement Cardiovascular: Normal pulses, Regular rate/rhythm Gastrointestinal: No tenderness, No masses, No rebound, No guarding Neurological: Normal speech, Normal strength at 5/5 x4 extr, Normal tone, Abnormal affect (Flat affect) Laboratory Data at Discharge: WBC 12.20 K/uL (4.3-10.9) H D 12/22/20 05:36 Hgb 10.2 g/dL (13.6-17.9) L 12/22/20 05:36 Hct 31.9 % (39.6-49.0) L 12/22/20 05:36 Plt Count 296 K/uL (152-406) 12/22/20 05:36 PT 23.7 SECONDS (9.5-12.5) H 12/21/20 10:20 INR 2.05 12/21/20 10:20 Sodium 139 mmol/L (136-145) 12/22/20 05:36 Potassium 3.5 mmol/L (3.5-5.1) 12/22/20 05:36 BUN 12 mg/dL (7-18) 12/22/20 05:36 Creatinine 0.88 mg/dL (0.55-1.3) 12/22/20 05:36 Glucose 109 mg/dL (74-106) H 12/22/20 05:36 Total Bilirubin 0.7 mg/dL (0.2-1.0) 12/22/20 05:36 AST 20 U/L (15-37) 12/22/20 05:36 ALT 13 U/L (12-78) 12/22/20 05:36 Alkaline Phosphatase 94 U/L (45-117) 12/22/20 05:36 Lipase 150 U/L (73-393) 12/21/20 10:20 Home Medications: Apixaban [Eliquis] 5 mg PO BID 12/16/20 Buspirone HCl [Buspar] 10 mg PO TID 12/16/20 Hydrocodone 10/APAP 325 [[place] 10/325*] 1 tab PO TID 12/16/20 Zolpidem Tartrate [Ambien Cr] 12.5 mg PO BEDTIME PRN 12/16/20 dexAMETHasone [Dexamethasone] 4 mg PO TID 12/16/20 Amox/Clavulanate [Augmentin 875-125 Tab*] 875 mg PO BID #14 tab 12/19/20 Escitalopram [Lexapro*] 20 mg PO DAILY #30 tab 12/19/20 Levofloxacin [Levaquin] 500 mg PO DAILY #7 tablet 12/19/20 Albuterol Sulfate [Proair Hfa] 2 puff IH BID PRN 12/21/20 Budesonide/Formoterol Fumarate [Symbicort 80-4.5 Mcg Inhaler] 2 puff IH DAILY 12/21/20 Cetirizine HCl 1 tab PO DAILY 12/21/20 Melatonin/Pyridoxine [Melatonin 5 mg Tablet] 1 tab PO BEDTIME 12/21/20 Tamsulosin HCl 1 cap PO DAILY 12/21/20 Physician Discharge Instructions: Patient to be discharge to home hospice. Patient presented with nausea, vomiting and poor oral intake. This was complicated with stage IV lung cancer with metastasis to the liver, adrenal gland and intracranial region. Patient was given IV fluids. Nausea vomiting resolved. Advanced care planning address in detail with the patient. After extensive review of prior CT scan there appears to be no improvement. In fact interval progression seen with mild increase in size of left upper lobe mass, mediastinal lymph nodes and probable increase in size of hepatic metastasis noted also developed currently measuring 12 mm. This was addressed in detail with the patient. Patient understands his prognosis is poor. He has expressed that his condition is not curable. After extensive review patient wishes to be DNR. Patient also agrees to hospice at home. Social work has arranged for this. Patient will go home with hospice in place. Continue comfort measures. Patient may continue with his current medications. Further adjustment in medication can be done by hospice. Patient recently hospitalized for postobstructive pneumonia. At discharge patient will continue and finish his antibiotic therapy. Patient with history of COPD, BPH, on chronic anti coagulation therapy, and depression. At discharge he will continue with his current medications. Diet: GI soft Activity: Fall precautions Followup: RANJIT NAYAK [Primary Care Provider] - Time spent managing pt's care (in minutes): 55
[2020-12-23] MEDS: dexAMETHasone 4 MG TAB PO SCH ×2 (08:30→13:34)
[2020-12-23] MEDS: AMOX/K CLAV 875 MG TAB PO SCH (08:30)
[2020-12-23] MEDS: HYDROCODONE/APAP 10/325 TAB PO SCH ×2 (08:31→13:34)
[2020-12-23] MEDS: BUSPIRONE HCL 5 MG TABLET PO SCH ×2 (08:31→13:34)
[2020-12-23] MEDS: ENSURE ENLIVE 237 ML CAN PO SCH ×2 (08:33→13:26)
[2020-12-23] MEDS ORDERED: CETIRIZINE HCL 5 MG TABLET PO SCH (09:00)
[2020-12-23] MEDS ORDERED: ESCITALOPRAM 20 MG TAB PO SCH (09:00)
[2020-12-23] MEDS ORDERED: TAMSULOSIN 0.4 MG SR CAP PO SCH (09:00)
[2020-12-23] MEDS ORDERED: APIXABAN 2.5 MG TABLET PO SCH (09:00)
[2020-12-23] MEDS ORDERED: levoFLOXacin 500 MG TAB PO SCH (09:00)
[2020-12-23 11:03] VITALS: O2SAT 92
[2020-12-23 16:38] VITALS: BP 124/76; TEMP 98.1
== END 2020-12-23 17:25 | disposition hospice, inpatient (51) ==
LOC: ER 09:11 → ERHOLD 13:35 → 2ND 19:52
PROVIDERS: ADMIT Internal Medicine Sleep Medicine; ATTEND Family Medicine
DX: R11.2 Nausea with vomiting, unspecified (principal); C34.90 Malignant neoplasm of unspecified part of unspecified bronchus or lung; C78.7 Secondary malignant neoplasm of liver and intrahepatic bile duct; C79.31 Secondary malignant neoplasm of brain; C79.70 Secondary malignant neoplasm of unspecified adrenal gland; J18.9 Pneumonia, unspecified organism; J44.9 Chronic obstructive pulmonary disease, unspecified; N40.0 Benign prostatic hyperplasia without lower urinary tract symptoms; F32.9 Major depressive disorder, single episode, unspecified; I71.4 Abdominal aortic aneurysm, without rupture; R53.1 Weakness; R19.7 Diarrhea, unspecified; Z79.01 Long term (current) use of anticoagulants; Z66 Do not resuscitate; Z20.822 Contact with and (suspected) exposure to COVID-19; Z87.891 Personal history of nicotine dependence
CPT/HCPCS: 85025 ×2; 80048; 36415; 85610; 82947 ×8; 80076; 83690; 80053; 74177; 71045; 73130; 96375; 96374; 99285; U0003; Q9967; J8540 ×4; J2270; J7799 ×2; J2405 ×2